=== PATIENT | female | born 1955 | race Caucasian/White ===

== ENCOUNTER → 2016-04-05 | Outpatient (CLI) | payer MEDICARE, MEDICAID ==
[~2016-04-05] MED LIST: ACET-654 PO; ALEV220T26 PO; ASPI81TA85 PO; CALCTAB68 PO; CENTTAB PO; CYMB60CA3 PO; ESTR0.5T PO; KEPP500T6 PO; PERCOCET PO; PRIL20CA PO; VITAD1000T PO; XANA0.25 PO; ZOCO20TA PO; decadron PO
--- NOTE | 2016-04-06 10:52 | DEXA ---
AP SPINE L1 - L4 0.704 -4.0 -2.7 LT FEMUR TOTAL 0.730 -2.2 -1.3 RT FEMUR TOTAL 0.777 -1.8 -0.9 TOTAL BODY TOTAL OTHER DUAL FEMUR FRAX* ASSESSMENT Risk factors: Premature menopause, thoracic compression fractures. 10 year probability of fracture Major osteoporotic fracture 23.8 % Hip fracture 6.2 % COMMENTS: There is osteoporosis of the spine and hips. FOLLOW-UP: Recommendation for the next bone density exam: 2 years. LARA
== END ==
LOC: M WHC 09:00
DX: M48.54XS Collapsed vertebra, not elsewhere classified, thoracic region, sequela of fracture (principal); M81.0 Age-related osteoporosis without current pathological fracture; Z78.0 Asymptomatic menopausal state

== ENCOUNTER → 2016-08-30 | Outpatient (CLI) | payer MEDICAID, MEDICARE ==
[~2016-08-30] MED LIST changes: +ISOVUE-370 76% 100ML VIAL (Q9967) As Ordered ONE; -PRIL20CA PO; +PRIL20CA9 PO
--- NOTE | 2016-08-30 10:09 | REP ---
CT STUDY OF THE CHEST WITH IV CONTRAST: HISTORY: Narrow endocrine carcinoma with metastasis. Comparison is made with most recent prior study of March 01, 2016. More remote prior CT study of December 01, [address] contrast dose: 75 mL of Isovue [address] FINDINGS: There are prominent venous collateral channels in the head and neck soft tissues. A right-sided venous injection is seen. 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 This is essentially unchanged. No supraclavicular adenopathy is seen. No mediastinal mass or adenopathy is observed. No hilar adenopathy is seen. Thoracic aorta enhances homogeneously. No filling defect is seen in the pulmonary arterial tree. Again noted are advanced emphysematous changes in the upper lobes of the lungs bilaterally. No new infiltrate is seen. There has been no change in the appearance of the 7 mm left lower lobe nodule. No new pulmonary mass lesion or new nodule is appreciated. There are some linear fibrotic changes in the right lower lobe posteromedially which are stable. No pleural or pericardial effusion is seen. Previously noted lytic lesion in the T8 vertebral body is again seen unchanged. There is slight wedging at this level. There is also a lytic lesion in the upper body of the sternum with ununited fracture appearance. This is possibly pathologic. It is unchanged from multiple prior studies including the most recent exam. IMPRESSION: Stable CT findings. Signed by Jonatan Napier MD 08/30/2016 12:58 P
--- NOTE | 2016-08-30 10:39 | REP ---
CT abdomen and pelvis with IV and oral contrast: Comparisons are 03/01/2016 and 12/03/2012. On 12/03/2012. The patient of mass in the tail of pancreas. This has been resected. The the hepatic parenchyma is homogeneous and unremarkable and unchanged. The gallbladder is unremarkable. The tail of the pancreas has been resected. There is no evidence of tumor recurrence. The appearance is unchanged from 03/01/2016. No adenopathy is identified. Spleen is normal size and unremarkable. The adrenals, kidneys and abdominal aorta are unremarkable. There is no retroperitoneal or mesenteric adenopathy. Bowel is unremarkable. Pelvis: There is no adenopathy or ascites. The pelvic bowel loops are unremarkable. The bladder is unremarkable. The vaginal cuff and adnexa are unremarkable in this patient with a hysterectomy. There are no lytic, blastic or destructive skeletal changes in the lumbar spine or pelvis. There is degenerative disc disease in the lumbar spine L5 S1. Impression: No evidence of tumor recurrence at the pancreatic tail. No adenopathy or ascites. No change from 03/01/2016. Degenerative disc disease in the lumbar spine L5 S1. No lytic, blastic or destructive skeletal lesions. Otherwise, negative CT study of the abdomen and pelvis. Signed by Lucas Tilley MD 08/30/2016 10:30 A
== END ==
LOC: M RAD 08:57
PROVIDERS: ATTEND Internal Medicine
DX: C7A.8 Other malignant neuroendocrine tumors (principal)
CPT/HCPCS: 71260; 74178; Q9967

== ENCOUNTER → 2016-12-08 | Outpatient (REF) | payer MEDICARE ==
[~2016-12-08] MED LIST changes: -ISOVUE-370 76% 100ML VIAL (Q9967) As Ordered ONE; +KEPP1TAB PO; -KEPP500T6 PO; +OXYC1TAB23 PO; +ZOFR4TAB3 PO
== END ==
LOC: M LAB REF 15:30
PROVIDERS: ATTEND Physician Assistant Medical
DX: N39.0 Urinary tract infection, site not specified (principal)

== ENCOUNTER → 2017-03-01 | Outpatient (CLI) | payer MEDICARE | LOC: M RAD 09:23 → M LAB 09:23 | PROVIDERS: ATTEND Internal Medicine | DX: C78.80 Secondary malignant neoplasm of unspecified digestive organ (principal); C7A.00 Malignant carcinoid tumor of unspecified site; C7A.8 Other malignant neuroendocrine tumors ==

== ENCOUNTER → 2017-03-03 | Outpatient (CLI) | payer MEDICARE ==
[2017-03-03 15:27] LABS: BLOOD UREA NITROGEN 18 MG/DL (7-18); CREATININE FOR GFR 0.99 MG/DL (0.55-1.02); GLOMERULAR FILTRATION RATE > 60.0 (>45)
== END ==
LOC: M LAB 03-01 11:37
DX: C34.91 Malignant neoplasm of unspecified part of right bronchus or lung (principal)

== ENCOUNTER → 2017-03-03 | Outpatient (CLI) | payer MEDICARE ==
[2017-03-03 15:30] LABS: ALBUMIN 4.1 GM/DL (3.2-5.2); ALBUMIN/GLOBULIN RATIO 1.05 (1.00-1.93); ALKALINE PHOSPHATASE 85 U/L (45-117); ALT/SGPT 20 U/L (12-78); ANION GAP 6 MEQ/L (8-16); AST/SGOT 15 U/L (7-37); BILIRUBIN,TOTAL 0.3 MG/DL (0.2-1.0); BLOOD UREA NITROGEN 17 MG/DL (7-18); CALCIUM LEVEL 9.4 MG/DL (8.8-10.2); CARBON DIOXIDE LEVEL 29 MEQ/L (21-32); CHLORIDE LEVEL 102 MEQ/L (98-107); CREATININE FOR GFR 0.97 MG/DL (0.55-1.02); GLOMERULAR FILTRATION RATE > 60.0 (>45); GLUCOSE, FASTING 90 MG/DL (80-110); POTASSIUM SERUM 4.5 MEQ/L (3.5-5.1); SODIUM LEVEL 137 MEQ/L (136-145)
== END ==
LOC: M LAB 14:45
PROVIDERS: ATTEND Internal Medicine
DX: C7A.00 Malignant carcinoid tumor of unspecified site (principal); C34.91 Malignant neoplasm of unspecified part of right bronchus or lung

== ENCOUNTER → 2017-03-04 | Outpatient (CLI) | payer MEDICARE ==
[~2017-03-04] MED LIST changes: +GASTROGRAFIN SOLUTION 30ML (Q9963) As Ordered ONE; +ISOVUE-370 76% 100ML VIAL (Q9967) As Ordered ONE
--- NOTE | 2017-03-04 15:28 | REP ---
CT of the chest with IV contrast: Comparisons are the most recent prior study dated 08/30/2016 as well as remote studies dating to 06/05/2008. The study is performed with intravenous contrast. The injection is into the right upper extremity. On the comparison study there was a right IJ central venous catheter. This has been removed. There are numerous venous collaterals in the soft tissues of the neck as previously. No contrast is identified in the proximal right subclavian vein. There is opacification of innominate vein and the collateral venous pathways with contrast entering the superior vena cava through the innominate vein. 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 Unchanged from prior study. There is a 7 ml left lower lobe lung nodule, unchanged from a prior study of 06/05/2008, therefore likely benign. There are no other lung nodules or masses. There is extensive bullous replacement lung parenchyma bilaterally, more predominant in the upper lobes, compatible with bullous emphysema. This is unchanged from multiple prior studies. There is no mediastinal or thoracic inlet adenopathy. There is no hilar adenopathy. There is no axillary adenopathy. There is a lytic lesion in the T8 vertebral body and there is a lytic lesion in the upper sternum. These are unchanged. 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 There is a stable granuloma in the left lower lobe. There is no adenopathy or mass. No infiltrate or effusion. There are lytic lesions of the T vertebral body and the superior sternum. These are unchanged. Sign taking Signed by Lucas Tilley MD 03/04/2017 03:19 P
--- NOTE | 2017-03-04 15:35 | REP ---
CT of the abdomen pelvis without and with IV contrast and with bowel contrast: After IV contrast. Biphasic scan is performed initially during the late arterial / portal venous phase of enhancement and later during the delayed equilibrium phase of enhancement. The patient had a mass in the tail of the pancreas are resected in the past and has clinical history of neuroendocrine carcinoma. Comparison 08/30/2016. The hepatic parenchyma is homogeneous unremarkable on all phases of the study. The gallbladder is unremarkable. The pancreatic tail is been resected. The remaining uncinate process, head and body of the pancreas are unremarkable and unchanged. There is no evidence of tumor recurrence. The spleen is unremarkable. The adrenals, kidneys and abdominal aorta are unremarkable. There is no mesenteric or retroperitoneal adenopathy. The bowel and mesentery are unremarkable. There is no ascites. Pelvis: There is no ascites or adenopathy. The bladder is unremarkable. There is a hysterectomy. Vaginal cuff and adnexa are unremarkable. The pelvic bowel loops are unremarkable. There are no lytic, blastic or destructive skeletal changes in the lumbar spine or pelvis. This is unchanged. There is degenerative disc disease at L5 S1. This is unchanged. Impression: No evidence of adenopathy, metastatic disease or ascites. No evidence of tumor recurrence at the pancreatic tail. No change from the comparison study. Signed by Lucas Tilley MD 03/04/2017 03:27 P
== END ==
LOC: M RAD 12:12
PROVIDERS: ATTEND Internal Medicine
DX: C7A.8 Other malignant neuroendocrine tumors (principal)
CPT/HCPCS: 71260; 74178; Q9963; Q9967

== ENCOUNTER → 2017-03-07 | Outpatient (CLI) | payer MEDICARE, MEDICAID ==
[~2017-03-07] MED LIST changes: -GASTROGRAFIN SOLUTION 30ML (Q9963) As Ordered ONE; +PROHANCE 279.3MG/ML 15ML VIAL (A9576) As Ordered ONE
--- NOTE | 2017-03-07 20:01 | REP ---
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 Comparison study September 08, 2015. Comparison study from November 23, 2013 is also reviewed. Technique: Axial and sagittal imaging planes are utilized for T1 and T2-weighted scans. Sequences include spin-echo, fast spin echo, FLAIR, and diffusion weighted sequences. Gadolinium enhancement dose is 13 ml of intravenous ProHance. MRI findings: There is a stable area of low density or encephalomalacia in the inferomedial cerebellar hemisphere on the left, unchanged from multiple prior studies. An area of encephalomalacia is again noted in the right posterior parietal lobe region, also unchanged. Pre gadolinium-enhanced T1-weighted scan again demonstrates a tiny area of T1 hyperintensity in the sub insular region on the right. There is hemosiderin staining here on FLAIR and turbo spin echo T2-weighted scans. This is unchanged and shows hyperintensity on post gadolinium enhanced images, although this may not be gadolinium enhancement, but rather T1 hyperintense signal. Diffusion weighted scans are unchanged and unremarkable. No new intracranial lesion is seen. No new area of gadolinium enhancement is noted. There is a small focus of calvarial T1 and T2 hyperintensity on the right posteriorly unchanged from multiple prior studies. Impression: No new intracranial lesion. Stable findings. Signed by Jonatan Napier MD 03/08/2017 03:55 P
== END ==
LOC: M RAD 17:59
PROVIDERS: ATTEND Nurse Practitioner
DX: C7A.8 Other malignant neuroendocrine tumors (principal)
CPT/HCPCS: 70553; A9576

== ENCOUNTER 2017-07-10 19:08 | Emergency (ER) | payer MEDICARE, MEDICAID | END 2017-07-10 22:04 | disposition home or self-care (01) | LOC: M ED 19:08 | DX: S22.41XA Multiple fractures of ribs, right side, initial encounter for closed fracture (principal); W17.89XA Other fall from one level to another, initial encounter; Y92.018 Other place in single-family (private) house as the place of occurrence of the external cause; Z79.899 Other long term (current) drug therapy; Z87.891 Personal history of nicotine dependence | CPT/HCPCS: 71101 ==

== ENCOUNTER 2017-07-12 21:38 | Inpatient (IN) | payer MEDICARE, MEDICAID ==
[2017-07-12 22:45] LABS: BASO # 0.1 10^3/uL (0.0-0.2); BASO % 0.6 % (0.0-1.0); EOS # 0.2 10^3/uL (0.0-0.50); EOS % 2.3 % (0.0-3.0); HEMATOCRIT 40.5 % (36.0-47.0); HEMOGLOBIN 13.7 g/dl (12.0-15.5); IMMATURE GRANULOCYTE % 0.4 % (0-3.0); LYMPH # 1.1 10^3/uL (1.5-4.5); LYMPH % 12.7 % (24.0-44.0); MEAN CORPUSCULAR HEMOGLOBIN 30.9 pg (27.0-33.0); MEAN CORPUSCULAR HGB CONC 33.8 g/dl (32.0-36.5); MEAN CORPUSCULAR VOLUME 91.4 fl (80.0-96.0); MONO % 11.7 % (0.0-5.0); NEUTROPHILS % 72.3 % (36.0-66.0); PLATELET COUNT, AUTOMATED 264 10^3/uL (150-450); RED BLOOD COUNT 4.43 10^6/uL (4.00-5.40); RED CELL DISTRIBUTION WIDTH 13.9 % (11.5-14.5); WHITE BLOOD COUNT 8.3 10^3/uL (4.0-10.0)
[2017-07-12 22:49] LABS: INR 0.88
[2017-07-12 22:50] LABS: PARTIAL THROMBOPLASTIN TIME 39.5 SECONDS (26.8-37.9)
[2017-07-12 23:00] LABS: BLOOD UREA NITROGEN 19 MG/DL (7-18); CALCIUM LEVEL 9.2 MG/DL (8.8-10.2); CHLORIDE LEVEL 106 MEQ/L (98-107); CPK CREATINE PHOSPHOKINASE 120 U/L (26-192); CREATININE FOR GFR 1.27 MG/DL (0.55-1.30); GLUCOSE, FASTING 104 MG/DL (70-100); POTASSIUM SERUM 4.4 MEQ/L (3.5-5.1); SODIUM LEVEL 140 MEQ/L (136-145)
[2017-07-12 23:43] LABS: TROPONIN I < 0.02 NG/ML (< 0.10)
[2017-07-12] MEDS: MORPHINE 2 MG/ML 1ML SYRINGE (J2270) IV (23:49)
[2017-07-12] MEDS: NS 500 ML IV (23:53)
[2017-07-13] MEDS ORDERED: ISOVUE-370 76% 100ML VIAL (Q9967) As Ordered (00:15)
[2017-07-13 00:17] LABS: ANION GAP 5 MEQ/L (8-16); CARBON DIOXIDE LEVEL 29 MEQ/L (21-32); CK-MB VALUE MASS 1.4 NG/ML (<3.6); MB/CK RELATIVE INDEX 1.16 (< OR =4)
[2017-07-13] MEDS: MORPHINE 2 MG/ML 1ML SYRINGE (J2270) IV (02:19)
[2017-07-13] MEDS ORDERED: METAL LOCK LOOP XX (03:06)
[2017-07-13] MEDS: BUPIVACAINE LIPOSOME/PF 1.3% 20 ML VIAL (13.3MG/ML)(EXPAREL) INFIL ×2 (03:15→12:21)
[2017-07-13] MEDS ORDERED: ONDANSETRON 4MG/2ML VIAL (J2405) IV (03:30)
[2017-07-13] MEDS ORDERED: SLF 3 ML SYR IV (05:15)
[2017-07-13] MEDS: PERCOCET 5MG/325MG TAB PO ×4 (05:20→20:10)
[2017-07-13] MEDS: SLF 3 ML SYR IV ×3 (05:21→20:08)
[2017-07-13] MEDS ORDERED: ALBUTEROL SULFATE 2.5 MG/0.5 ML INH NEB SOLN NEB (06:15)
[2017-07-13] MEDS: MORPHINE 4 MG/ML 1ML VIAL/SYRINGE (J2270) IV (08:24)
[2017-07-13] MEDS: levETIRAcetam 250MG TABLET (KEPPRA) PO ×2 (08:24→20:07)
[2017-07-13] MEDS: ENOXAPARIN 40 MG/0.4 ML SYRINGE (J1650) SC (08:24)
[2017-07-13] MEDS: DULoxetine 30 MG CAP (CYMBALTA) PO (08:25)
[2017-07-13] MEDS: SENOKOT S TAB PO ×2 (08:25→20:07)
[2017-07-13] MEDS ORDERED: LIDOCAINE 1% MDV 20ML VIAL As Ordered (11:49)
[2017-07-13] MEDS: LIDOCAINE 1% MDV 20ML VIAL SC (12:34)
[2017-07-13] MEDS: DOCUSATE SODIUM 100 MG CAP PO ×2 (13:05→20:07)
[2017-07-13] MEDS: MOM 30ML SUSPENSION UDC PO (13:05)
[2017-07-13 18:41] LABS: ABG BASE EXCESS 2.4 (-2.0-2.0); ABG HCO3 27.5 MEQ/L (22.0-26.0); ABG O2 SATURATION 92.4 % (95.0-99.0); ABG PARTIAL PRESSURE CO2 44.4 mmHg (35.0-45.0); ABG PARTIAL PRESSURE O2 68.4 mmHg (75.0-100.0); ABG STANDARD HCO3 26.5 MEQ/L (22.0-26.0); ABG TOTAL CO2 28.9 MEQ/L (23.0-31.0)
[2017-07-13] MEDS: QUEtiapine FUMARATE 50 MG TAB PO (20:07)
[2017-07-14 05:50] LABS: HEMATOCRIT 36.9 % (36.0-47.0); HEMOGLOBIN 12.3 g/dl (12.0-15.5); MEAN CORPUSCULAR HEMOGLOBIN 30.4 pg (27.0-33.0); MEAN CORPUSCULAR HGB CONC 33.3 g/dl (32.0-36.5); MEAN CORPUSCULAR VOLUME 91.1 fl (80.0-96.0); PLATELET COUNT, AUTOMATED 203 10^3/uL (150-450); RED BLOOD COUNT 4.05 10^6/uL (4.00-5.40); RED CELL DISTRIBUTION WIDTH 13.8 % (11.5-14.5); WHITE BLOOD COUNT 4.5 10^3/uL (4.0-10.0)
[2017-07-14] MEDS: SLF 3 ML SYR IV ×3 (06:00→21:07)
[2017-07-14 06:18] LABS: ANION GAP 5 MEQ/L (8-16); BLOOD UREA NITROGEN 11 MG/DL (7-18); CALCIUM LEVEL 8.8 MG/DL (8.8-10.2); CARBON DIOXIDE LEVEL 26 MEQ/L (21-32); CHLORIDE LEVEL 107 MEQ/L (98-107); CREATININE FOR GFR 0.75 MG/DL (0.55-1.30); GLOMERULAR FILTRATION RATE > 60.0 (>45); GLUCOSE, FASTING 84 MG/DL (70-100); POTASSIUM SERUM 3.9 MEQ/L (3.5-5.1); SODIUM LEVEL 138 MEQ/L (136-145)
[2017-07-14] MEDS: MOM 30ML SUSPENSION UDC PO (09:25)
[2017-07-14] MEDS: SENOKOT S TAB PO ×2 (09:26→21:07)
[2017-07-14] MEDS: DOCUSATE SODIUM 100 MG CAP PO ×2 (09:26→21:06)
[2017-07-14] MEDS: DULoxetine 30 MG CAP (CYMBALTA) PO (09:26)
[2017-07-14] MEDS: levETIRAcetam 250MG TABLET (KEPPRA) PO ×2 (09:26→21:07)
[2017-07-14] MEDS: PERCOCET 5MG/325MG TAB PO ×2 (09:26→18:47)
[2017-07-14] MEDS: ENOXAPARIN 40 MG/0.4 ML SYRINGE (J1650) SC (09:27)
[2017-07-14] MEDS: MORPHINE 4 MG/ML 1ML VIAL/SYRINGE (J2270) IV (12:28)
[2017-07-14] MEDS: KETOROLAC 30 MG/ML VIAL (J1885) IV ×2 (15:27→21:07)
[2017-07-14] MEDS: QUEtiapine FUMARATE 50 MG TAB PO (21:06)
[2017-07-15] MEDS: KETOROLAC 30 MG/ML VIAL (J1885) IV ×2 (03:50→08:06)
[2017-07-15] MEDS: SLF 3 ML SYR IV ×3 (03:50→22:00)
[2017-07-15 05:51] LABS: HEMATOCRIT 33.6 % (36.0-47.0); HEMOGLOBIN 11.2 g/dl (12.0-15.5); MEAN CORPUSCULAR HEMOGLOBIN 30.5 pg (27.0-33.0); MEAN CORPUSCULAR HGB CONC 33.3 g/dl (32.0-36.5); MEAN CORPUSCULAR VOLUME 91.6 fl (80.0-96.0); PLATELET COUNT, AUTOMATED 198 10^3/uL (150-450); RED BLOOD COUNT 3.67 10^6/uL (4.00-5.40); RED CELL DISTRIBUTION WIDTH 13.8 % (11.5-14.5); WHITE BLOOD COUNT 4.3 10^3/uL (4.0-10.0)
[2017-07-15 06:04] LABS: ANION GAP 6 MEQ/L (8-16); BLOOD UREA NITROGEN 23 MG/DL (7-18); CALCIUM LEVEL 8.7 MG/DL (8.8-10.2); CARBON DIOXIDE LEVEL 29 MEQ/L (21-32); CHLORIDE LEVEL 105 MEQ/L (98-107); CREATININE FOR GFR 1.22 MG/DL (0.55-1.30); GLOMERULAR FILTRATION RATE 47.4 (>45); GLUCOSE, FASTING 88 MG/DL (70-100); POTASSIUM SERUM 4.9 MEQ/L (3.5-5.1); SODIUM LEVEL 140 MEQ/L (136-145)
[2017-07-15] MEDS: PERCOCET 5MG/325MG TAB PO ×5 (07:32→22:42)
[2017-07-15] MEDS: levETIRAcetam 250MG TABLET (KEPPRA) PO ×2 (08:06→20:30)
[2017-07-15] MEDS: DULoxetine 30 MG CAP (CYMBALTA) PO (08:06)
[2017-07-15] MEDS: ENOXAPARIN 40 MG/0.4 ML SYRINGE (J1650) SC (08:07)
[2017-07-15] MEDS: SENOKOT S TAB PO ×2 (08:07→20:30)
[2017-07-15] MEDS: MOM 30ML SUSPENSION UDC PO (08:07)
[2017-07-15] MEDS: DOCUSATE SODIUM 100 MG CAP PO ×2 (08:07→20:30)
[2017-07-15] MEDS: MORPHINE 4 MG/ML 1ML VIAL/SYRINGE (J2270) IV ×3 (11:58→20:32)
[2017-07-15] MEDS: QUEtiapine FUMARATE 50 MG TAB PO (20:30)
[2017-07-16] MEDS: MORPHINE 4 MG/ML 1ML VIAL/SYRINGE (J2270) IV ×5 (00:25→18:02)
[2017-07-16 05:12] LABS: HEMOGLOBIN 11.1 g/dl (12.0-15.5); MEAN CORPUSCULAR HGB CONC 33.6 g/dl (32.0-36.5); MEAN CORPUSCULAR VOLUME 92.2 fl (80.0-96.0); PLATELET COUNT, AUTOMATED 200 10^3/uL (150-450); RED BLOOD COUNT 3.58 10^6/uL (4.00-5.40); RED CELL DISTRIBUTION WIDTH 13.9 % (11.5-14.5); WHITE BLOOD COUNT 4.2 10^3/uL (4.0-10.0)
[2017-07-16] MEDS: PERCOCET 5MG/325MG TAB PO ×3 (05:15→13:52)
[2017-07-16] MEDS: SLF 3 ML SYR IV ×3 (05:18→21:24)
[2017-07-16 05:31] LABS: ANION GAP 6 MEQ/L (8-16); BLOOD UREA NITROGEN 26 MG/DL (7-18); CALCIUM LEVEL 8.9 MG/DL (8.8-10.2); CARBON DIOXIDE LEVEL 27 MEQ/L (21-32); CHLORIDE LEVEL 107 MEQ/L (98-107); CREATININE FOR GFR 0.93 MG/DL (0.55-1.30); GLOMERULAR FILTRATION RATE > 60.0 (>45); GLUCOSE, FASTING 86 MG/DL (70-100); POTASSIUM SERUM 4.6 MEQ/L (3.5-5.1); SODIUM LEVEL 140 MEQ/L (136-145)
[2017-07-16] MEDS: DOCUSATE SODIUM 100 MG CAP PO ×2 (09:36→21:24)
[2017-07-16] MEDS: MOM 30ML SUSPENSION UDC PO (09:36)
[2017-07-16] MEDS: SENOKOT S TAB PO ×2 (09:36→21:24)
[2017-07-16] MEDS: DULoxetine 30 MG CAP (CYMBALTA) PO (09:36)
[2017-07-16] MEDS: levETIRAcetam 250MG TABLET (KEPPRA) PO ×2 (09:37→21:24)
[2017-07-16] MEDS: ENOXAPARIN 40 MG/0.4 ML SYRINGE (J1650) SC (09:40)
[2017-07-16] MEDS: QUEtiapine FUMARATE 50 MG TAB PO (21:24)
[2017-07-17] MEDS: PERCOCET 5MG/325MG TAB PO ×3 (02:01→14:10)
[2017-07-17] MEDS: SLF 3 ML SYR IV ×3 (06:00→23:23)
[2017-07-17 06:15] LABS: HEMATOCRIT 34.4 % (36.0-47.0); HEMOGLOBIN 11.3 g/dl (12.0-15.5); MEAN CORPUSCULAR HEMOGLOBIN 30.4 pg (27.0-33.0); MEAN CORPUSCULAR HGB CONC 32.8 g/dl (32.0-36.5); MEAN CORPUSCULAR VOLUME 92.5 fl (80.0-96.0); PLATELET COUNT, AUTOMATED 203 10^3/uL (150-450); RED BLOOD COUNT 3.72 10^6/uL (4.00-5.40); WHITE BLOOD COUNT 4.1 10^3/uL (4.0-10.0)
[2017-07-17 06:39] LABS: ANION GAP 6 MEQ/L (8-16); BLOOD UREA NITROGEN 17 MG/DL (7-18); CALCIUM LEVEL 8.6 MG/DL (8.8-10.2); CARBON DIOXIDE LEVEL 27 MEQ/L (21-32); CHLORIDE LEVEL 109 MEQ/L (98-107); CREATININE FOR GFR 0.84 MG/DL (0.55-1.30); GLOMERULAR FILTRATION RATE > 60.0 (>45); GLUCOSE, FASTING 81 MG/DL (70-100); POTASSIUM SERUM 4.3 MEQ/L (3.5-5.1); SODIUM LEVEL 142 MEQ/L (136-145)
[2017-07-17] MEDS: DULoxetine 30 MG CAP (CYMBALTA) PO (09:00)
[2017-07-17] MEDS: MOM 30ML SUSPENSION UDC PO ×2 (09:00→09:01)
[2017-07-17] MEDS: ENOXAPARIN 40 MG/0.4 ML SYRINGE (J1650) SC (09:00)
[2017-07-17] MEDS: DOCUSATE SODIUM 100 MG CAP PO ×2 (09:00→20:18)
[2017-07-17] MEDS: SENOKOT S TAB PO ×2 (09:00→20:18)
[2017-07-17] MEDS: levETIRAcetam 250MG TABLET (KEPPRA) PO ×2 (09:00→20:18)
[2017-07-17] MEDS: QUEtiapine FUMARATE 50 MG TAB PO (20:18)
[2017-07-18] MEDS: SLF 3 ML SYR IV ×3 (05:31→21:31)
[2017-07-18 05:59] LABS: HEMATOCRIT 33.8 % (36.0-47.0); HEMOGLOBIN 11.2 g/dl (12.0-15.5); MEAN CORPUSCULAR HEMOGLOBIN 30.5 pg (27.0-33.0); MEAN CORPUSCULAR HGB CONC 33.1 g/dl (32.0-36.5); MEAN CORPUSCULAR VOLUME 92.1 fl (80.0-96.0); PLATELET COUNT, AUTOMATED 215 10^3/uL (150-450); RED BLOOD COUNT 3.67 10^6/uL (4.00-5.40); RED CELL DISTRIBUTION WIDTH 13.8 % (11.5-14.5); WHITE BLOOD COUNT 4.6 10^3/uL (4.0-10.0)
[2017-07-18] MEDS: PERCOCET 5MG/325MG TAB PO ×3 (06:12→15:30)
[2017-07-18 06:37] LABS: ANION GAP 6 MEQ/L (8-16); BLOOD UREA NITROGEN 17 MG/DL (7-18); CARBON DIOXIDE LEVEL 27 MEQ/L (21-32); CHLORIDE LEVEL 108 MEQ/L (98-107); CREATININE FOR GFR 0.81 MG/DL (0.55-1.30); GLOMERULAR FILTRATION RATE > 60.0 (>45); GLUCOSE, FASTING 90 MG/DL (70-100); POTASSIUM SERUM 4.2 MEQ/L (3.5-5.1); SODIUM LEVEL 141 MEQ/L (136-145)
[2017-07-18] MEDS: DOCUSATE SODIUM 100 MG CAP PO ×2 (09:00→21:30)
[2017-07-18] MEDS: DULoxetine 30 MG CAP (CYMBALTA) PO (09:00)
[2017-07-18] MEDS: ENOXAPARIN 40 MG/0.4 ML SYRINGE (J1650) SC (09:00)
[2017-07-18] MEDS: SENOKOT S TAB PO ×2 (09:00→21:30)
[2017-07-18] MEDS: MOM 30ML SUSPENSION UDC PO (09:00)
[2017-07-18] MEDS: levETIRAcetam 250MG TABLET (KEPPRA) PO ×2 (09:02→21:30)
[2017-07-18] MEDS: QUEtiapine FUMARATE 50 MG TAB PO (21:30)
[2017-07-19] MEDS: PERCOCET 5MG/325MG TAB PO ×3 (00:42→20:12)
[2017-07-19] MEDS: SLF 3 ML SYR IV ×3 (04:39→22:02)
[2017-07-19 06:48] LABS: HEMATOCRIT 33.6 % (36.0-47.0); HEMOGLOBIN 11.4 g/dl (12.0-15.5); MEAN CORPUSCULAR HEMOGLOBIN 30.8 pg (27.0-33.0); MEAN CORPUSCULAR HGB CONC 33.9 g/dl (32.0-36.5); MEAN CORPUSCULAR VOLUME 90.8 fl (80.0-96.0); PLATELET COUNT, AUTOMATED 228 10^3/uL (150-450); RED CELL DISTRIBUTION WIDTH 13.8 % (11.5-14.5); WHITE BLOOD COUNT 4.2 10^3/uL (4.0-10.0)
[2017-07-19 07:07] LABS: ANION GAP 3 MEQ/L (8-16); BLOOD UREA NITROGEN 14 MG/DL (7-18); CALCIUM LEVEL 9.2 MG/DL (8.8-10.2); CARBON DIOXIDE LEVEL 27 MEQ/L (21-32); CHLORIDE LEVEL 110 MEQ/L (98-107); CREATININE FOR GFR 0.71 MG/DL (0.55-1.30); GLOMERULAR FILTRATION RATE > 60.0 (>45); GLUCOSE, FASTING 84 MG/DL (70-100); POTASSIUM SERUM 3.8 MEQ/L (3.5-5.1); SODIUM LEVEL 140 MEQ/L (136-145)
[2017-07-19] MEDS: DOCUSATE SODIUM 100 MG CAP PO ×2 (09:00→20:11)
[2017-07-19] MEDS: MOM 30ML SUSPENSION UDC PO ×2 (09:00→10:11)
[2017-07-19] MEDS: SENOKOT S TAB PO ×2 (09:00→20:11)
[2017-07-19] MEDS: levETIRAcetam 250MG TABLET (KEPPRA) PO ×2 (09:56→20:11)
[2017-07-19] MEDS: DULoxetine 30 MG CAP (CYMBALTA) PO (09:58)
[2017-07-19] MEDS: ENOXAPARIN 40 MG/0.4 ML SYRINGE (J1650) SC (10:10)
[2017-07-19] MEDS: QUEtiapine FUMARATE 50 MG TAB PO (20:11)
[2017-07-20] MEDS: SLF 3 ML SYR IV ×3 (03:07→22:00)
[2017-07-20 07:33] LABS: HEMATOCRIT 34.5 % (36.0-47.0); HEMOGLOBIN 11.7 g/dl (12.0-15.5); MEAN CORPUSCULAR HEMOGLOBIN 30.7 pg (27.0-33.0); MEAN CORPUSCULAR HGB CONC 33.9 g/dl (32.0-36.5); MEAN CORPUSCULAR VOLUME 90.6 fl (80.0-96.0); PLATELET COUNT, AUTOMATED 233 10^3/uL (150-450); RED BLOOD COUNT 3.81 10^6/uL (4.00-5.40); RED CELL DISTRIBUTION WIDTH 13.7 % (11.5-14.5); WHITE BLOOD COUNT 5.4 10^3/uL (4.0-10.0)
[2017-07-20 07:58] LABS: ANION GAP 6 MEQ/L (8-16); BLOOD UREA NITROGEN 11 MG/DL (7-18); CALCIUM LEVEL 9.1 MG/DL (8.8-10.2); CARBON DIOXIDE LEVEL 26 MEQ/L (21-32); CHLORIDE LEVEL 109 MEQ/L (98-107); CREATININE FOR GFR 0.77 MG/DL (0.55-1.30); GLOMERULAR FILTRATION RATE > 60.0 (>45); GLUCOSE, FASTING 77 MG/DL (70-100); POTASSIUM SERUM 3.6 MEQ/L (3.5-5.1); SODIUM LEVEL 141 MEQ/L (136-145)
[2017-07-20] MEDS: DOCUSATE SODIUM 100 MG CAP PO ×2 (10:11→22:32)
[2017-07-20] MEDS: DULoxetine 30 MG CAP (CYMBALTA) PO (10:12)
[2017-07-20] MEDS: ENOXAPARIN 40 MG/0.4 ML SYRINGE (J1650) SC (10:12)
[2017-07-20] MEDS: SENOKOT S TAB PO ×2 (10:12→21:00)
[2017-07-20] MEDS: levETIRAcetam 250MG TABLET (KEPPRA) PO ×2 (10:12→22:30)
[2017-07-20] MEDS: PERCOCET 5MG/325MG TAB PO ×3 (10:12→22:31)
[2017-07-20] MEDS: QUEtiapine FUMARATE 50 MG TAB PO (22:31)
[2017-07-21] MEDS: SLF 3 ML SYR IV ×2 (06:00→09:13)
[2017-07-21] MEDS: MOM 30ML SUSPENSION UDC PO (09:00)
[2017-07-21] MEDS: ENOXAPARIN 40 MG/0.4 ML SYRINGE (J1650) SC (09:10)
[2017-07-21] MEDS: DOCUSATE SODIUM 100 MG CAP PO (09:10)
[2017-07-21] MEDS: DULoxetine 30 MG CAP (CYMBALTA) PO (09:10)
[2017-07-21] MEDS: levETIRAcetam 250MG TABLET (KEPPRA) PO (09:10)
[2017-07-21] MEDS: SENOKOT S TAB PO (09:11)
[2017-07-21] MEDS: PERCOCET 5MG/325MG TAB PO (09:12)
[2017-07-21 11:46] LABS: APPEARANCE, URINE HAZY (CLEAR); BACTERIA, URINE AUTO NEGATIVE (NEGATIVE); BILIRUBIN, URINE AUTO NEGATIVE (NEGATIVE); BLOOD, URINE BLOOD 2+ (NEGATIVE); COLOR, URINE YELLOW (YELLOW); GLUCOSE, URINE (UA) AUTO NEGATIVE (NEGATIVE); KETONE, URINE AUTO NEGATIVE (NEGATIVE); LEUKOCYTE ESTERASE, URINE AUTO 3+ (NEGATIVE); MUCUS, URINE SMALL (NEGATIVE); NITRITE, URINE AUTO NEGATIVE (NEGATIVE); PROTEIN, URINE AUTO NEGATIVE (NEGATIVE); RBC, URINE AUTO 32 /HPF (0-3); RENAL EPITHELIAL CELLS 1 /HPF; SPECIFIC GRAVITY URINE AUTO 1.008 (1.002-1.035); SQUAMOUS EPITHELIAL CELL UR AU 0 /HPF (0-6); TRANSITIONAL EPITHELIAL AUTO <1 /HPF; UROBILINOGEN, URINE AUTO 0.2 mg/dL (0.0-2.0); WBC, URINE AUTO TNTC /HPF (0-3)
[2017-07-21] MEDS: CEFDINIR 300 MG CAP (OMNICEF) PO (13:10)
== END 2017-07-21 14:16 | disposition home health service (06) | DRG 200 ==
LOC: M PCU 07-15 05:45 → M MSPAV 07-16 16:34 → M ED INP 07-13 03:28 → M PCU 07-13 04:46 → M ED 21:38
PROC: 3E0T3BZ Introduction of Anesthetic Agent into Peripheral Nerves and Plexi, Percutaneous Approach (ICD-10-PCS; principal; 2017-07-13)
DX: S27.2XXA Traumatic hemopneumothorax, initial encounter (principal); S22.41XA Multiple fractures of ribs, right side, initial encounter for closed fracture; C79.31 Secondary malignant neoplasm of brain; W17.89XA Other fall from one level to another, initial encounter; Y92.018 Other place in single-family (private) house as the place of occurrence of the external cause; Z79.899 Other long term (current) drug therapy; J43.9 Emphysema, unspecified; F32.9 Major depressive disorder, single episode, unspecified; F41.9 Anxiety disorder, unspecified; R29.6 Repeated falls; Z87.891 Personal history of nicotine dependence; Z85.118 Personal history of other malignant neoplasm of bronchus and lung

== ENCOUNTER → 2017-09-07 | Outpatient (CLI) | payer MEDICARE ==
[~2017-09-07] MED LIST changes: -ACET-654 PO; -ALEV220T26 PO; -ASPI81TA85 PO; -CALCTAB68 PO; -CENTTAB PO; -CYMB60CA3 PO; -ESTR0.5T PO; +GASTROGRAFIN SOLUTION 30ML (Q9963) As Ordered; +ISOVUE-370 76% 100ML VIAL (Q9967) As Ordered; -ISOVUE-370 76% 100ML VIAL (Q9967) As Ordered ONE; -KEPP1TAB PO; -OXYC1TAB23 PO; -PERCOCET PO; -PRIL20CA9 PO; -PROHANCE 279.3MG/ML 15ML VIAL (A9576) As Ordered ONE; -VITAD1000T PO; -XANA0.25 PO; -ZOCO20TA PO; -ZOFR4TAB3 PO; -decadron PO
== END ==
LOC: M RAD 09:31
DX: C34.90 Malignant neoplasm of unspecified part of unspecified bronchus or lung (principal)
CPT/HCPCS: Q9963

== ENCOUNTER 2017-10-03 14:30 | Emergency (ER) | payer MEDICARE, MEDICAID | END 2017-10-03 16:15 | disposition home or self-care (01) | LOC: M ED 14:30 | DX: S30.0XXA Contusion of lower back and pelvis, initial encounter (principal); S70.02XA Contusion of left hip, initial encounter; W01.0XXA Fall on same level from slipping, tripping and stumbling without subsequent striking against object, initial encounter; Y92.094 Garage of other non-institutional residence as the place of occurrence of the external cause; J44.9 Chronic obstructive pulmonary disease, unspecified; K21.9 Gastro-esophageal reflux disease without esophagitis; F41.9 Anxiety disorder, unspecified; F32.9 Major depressive disorder, single episode, unspecified; Z79.899 Other long term (current) drug therapy | CPT/HCPCS: 72110 ==

== ENCOUNTER 2017-10-10 20:08 | Emergency (ER) | payer MEDICARE, MEDICAID ==
[2017-10-11] MEDS: MORPHINE 4 MG/ML 1ML VIAL/SYRINGE (J2270) IV ×2 (00:41→01:02)
[2017-10-11] MEDS: ONDANSETRON 4MG/2ML VIAL (J2405) IV (00:41)
[2017-10-11] MEDS ORDERED: MORPHINE 4 MG/ML 1ML VIAL/SYRINGE (J2270) As Ordered (01:09)
== END 2017-10-11 02:30 | disposition home or self-care (01) ==
LOC: M ED 20:08
DX: M25.551 Pain in right hip (principal); M54.5 Low back pain; W01.198A Fall on same level from slipping, tripping and stumbling with subsequent striking against other object, initial encounter; Y92.091 Bathroom in other non-institutional residence as the place of occurrence of the external cause; Z85.118 Personal history of other malignant neoplasm of bronchus and lung; Z85.841 Personal history of malignant neoplasm of brain; Z87.891 Personal history of nicotine dependence; Z79.899 Other long term (current) drug therapy
CPT/HCPCS: J2270

== ENCOUNTER 2017-12-27 06:51 | Day surgery (SDC) | payer MEDICARE ==
[2017-12-27] MEDS: NS 1,000 ML IV (07:08)
[2017-12-27] MEDS ORDERED: LIDOCAINE 2% INJ 100 MG/5 ML SDV (FOR ANES.) As Ordered (08:05)
[2017-12-27] MEDS ORDERED: PROPOFOL 500 MG/50 ML VIAL As Ordered (08:05)
== END 2017-12-27 08:53 | disposition home or self-care (01) ==
LOC: M OPP 06:51
DX: Z12.11 Encounter for screening for malignant neoplasm of colon (principal); D12.3 Benign neoplasm of transverse colon; K64.0 First degree hemorrhoids; K57.30 Diverticulosis of large intestine without perforation or abscess without bleeding; M19.90 Unspecified osteoarthritis, unspecified site; K62.5 Hemorrhage of anus and rectum; F41.9 Anxiety disorder, unspecified; F32.9 Major depressive disorder, single episode, unspecified; Z78.0 Asymptomatic menopausal state; J44.9 Chronic obstructive pulmonary disease, unspecified; Z85.118 Personal history of other malignant neoplasm of bronchus and lung; Z92.21 Personal history of antineoplastic chemotherapy; Z92.3 Personal history of irradiation; R06.02 Shortness of breath; Z87.891 Personal history of nicotine dependence; Z79.899 Other long term (current) drug therapy; C79.31 Secondary malignant neoplasm of brain
CPT/HCPCS: 45385

== ENCOUNTER → 2018-02-08 | Outpatient (CLI) | payer MEDICARE | LOC: M RAD 13:49 | DX: Z12.31 Encounter for screening mammogram for malignant neoplasm of breast (principal) | CPT/HCPCS: 77067 ==

== ENCOUNTER → 2018-02-27 | Outpatient (CLI) | payer MEDICARE, MEDICAID ==
[~2018-02-27] MED LIST changes: -GASTROGRAFIN SOLUTION 30ML (Q9963) As Ordered; -ISOVUE-370 76% 100ML VIAL (Q9967) As Ordered; +PROHANCE 279.3MG/ML 15ML VIAL (A9576) As Ordered
== END ==
LOC: M RAD 12:37
DX: C34.90 Malignant neoplasm of unspecified part of unspecified bronchus or lung (principal); C7A.8 Other malignant neuroendocrine tumors
CPT/HCPCS: A9576

== ENCOUNTER → 2018-03-06 | Outpatient (CLI) | payer MEDICARE ==
[~2018-03-06] MED LIST changes: +GASTROGRAFIN SOLUTION 30ML (Q9963) As Ordered; +ISOVUE-370 76% 100ML VIAL (Q9967) As Ordered; -PROHANCE 279.3MG/ML 15ML VIAL (A9576) As Ordered
== END ==
LOC: M RAD 12:43
DX: C34.90 Malignant neoplasm of unspecified part of unspecified bronchus or lung (principal); C7A.8 Other malignant neuroendocrine tumors
CPT/HCPCS: Q9963

== ENCOUNTER → 2018-04-10 | Outpatient (REF) | payer MEDICARE, MEDICAID ==
[~2018-04-10] MED LIST changes: +ACET-654 PO; +ALEV220T26 PO; +ASPI81TA85 PO; +CALC500T49 PO; +CALCTAB68 PO; +CEFD1CAP8 PO; +CENTTAB PO; +CYMB60CA3 PO; +DULO1CAP3 PO; +ESTR0.5T PO; -GASTROGRAFIN SOLUTION 30ML (Q9963) As Ordered; -ISOVUE-370 76% 100ML VIAL (Q9967) As Ordered; +KEPP1TAB PO; +OMEP20CA3 PO; +OXYC1TAB23 PO; +PERC10TA26 PO; +PERCOCET PO; +PRIL20CA9 PO; +QUET5TAB; +SERO50TA PO; +VITAD1000T PO; +VITMTA PO; +XANA0.25 PO; +ZOCO20TA PO; +ZOFR4TAB14 PO; +decadron PO
== END ==
LOC: M LAB REF 16:57
PROVIDERS: ATTEND Nurse Practitioner Adult Health
DX: C34.90 Malignant neoplasm of unspecified part of unspecified bronchus or lung (principal); C79.31 Secondary malignant neoplasm of brain

== ENCOUNTER → 2018-08-31 | Outpatient (CLI) | payer MEDICAID, MEDICARE ==
[~2018-08-31] MED LIST changes: +GASTROGRAFIN SOLUTION 30ML (Q9963) As Ordered ONE; +ISOVUE-370 76% 100ML VIAL (Q9967) As Ordered ONE
--- NOTE | 2018-08-31 17:17 | REP ---
CT CHEST WITH IV CONTRAST: TECHNIQUE: Axial contrast enhanced images from the thoracic inlet to the upper abdomen using 100 mL Isovue 370 intravenous contrast material with multiplanar reformations. COMPARISON: 03/06/2018 as well as other prior exams. Once again, severe emphysematous changes are seen in the upper lobes. Scattered fibrotic changes are again noted. The subcentimeter nodular opacity in the left lower lobe is stable. No new nodules are seen. There is no evidence of mediastinal, hilar or chest wall lymphadenopathy. The heart is normal in size. There is no pleural or pericardial effusion. Old pathologic fracture of the T8 vertebral body is stable. IMPRESSION: Stable CT of the chest as discussed in detail above. Electronically Signed by Lucas Casillas MD 09/04/2018 04:59 P
--- NOTE | 2018-08-31 17:25 | REP ---
CT ABDOMEN AND PELVIS WITH ORAL AND IV CONTRAST: TECHNIQUE: Axial contrast enhanced images from the lung bases to the pubic symphysis using 100 mL Isovue 370 intravenous contrast material with multiplanar reformations. COMPARISON: 03/06/2018 The liver, spleen, adrenal, pancreas, and kidneys are unremarkable. No mass is seen. There is no adenopathy in the abdomen or pelvis. There is no abdominal aortic aneurysm. There is no free air or free fluid. There is no bowel wall thickening. No pelvic mass is seen. The patient has had a prior hysterectomy. The urinary bladder is slightly distended and not optimally evaluated. There is continued advanced healing of sacral insufficiency fractures. IMPRESSION: No evidence of mass or adenopathy. Continued advanced healing of sacral insufficiency fracture. Electronically Signed by Lucas Casillas MD 09/04/2018 04:59 P
== END ==
LOC: M RAD 11:38
PROVIDERS: ATTEND Internal Medicine
DX: C34.90 Malignant neoplasm of unspecified part of unspecified bronchus or lung (principal)
CPT/HCPCS: 71260; 74177; Q9963; Q9967

== ENCOUNTER → 2018-10-04 | Outpatient (CLI) | payer MEDICARE ==
[~2018-10-04] MED LIST changes: -DULO1CAP3 PO; +DULO1CAP6 PO; -GASTROGRAFIN SOLUTION 30ML (Q9963) As Ordered ONE; -ISOVUE-370 76% 100ML VIAL (Q9967) As Ordered ONE; -OMEP20CA3 PO; +OMEP20CA4 PO
--- NOTE | 2018-10-04 18:23 | REP ---
Left rib series: Six views including PA chest. History: Contusion. Comparison chest x-ray: July 21, 2017. Findings: PA chest x-ray shows hyperinflation and bilateral upper lobe hyperemia consistent with COPD. There is no evidence of pneumothorax or hydrothorax. Mild linear fibrosis changes are seen at the bases bilaterally. Heart size is normal. Mediastinum is not widened. Multiple views of the left rib cage show no visible rib fracture or bony destructive lesion. Impression: Evidence of COPD. No rib fracture or bony destructive lesion seen. Electronically Signed by Jonatan Napier MD 10/05/2018 07:59 A
== END ==
LOC: M WUC 15:40
PROVIDERS: ATTEND Physician Assistant
DX: S20.229A Contusion of unspecified back wall of thorax, initial encounter (principal); J84.10 Pulmonary fibrosis, unspecified; J44.9 Chronic obstructive pulmonary disease, unspecified; X58.XXXA Exposure to other specified factors, initial encounter; Y92.9 Unspecified place or not applicable

== ENCOUNTER → 2018-11-02 | Outpatient (REF) | payer MEDICARE | LOC: M LAB REF 17:07 | PROVIDERS: ATTEND Nurse Practitioner Adult Health | DX: C79.31 Secondary malignant neoplasm of brain (principal); C34.90 Malignant neoplasm of unspecified part of unspecified bronchus or lung ==

== ENCOUNTER → 2019-03-05 | Outpatient (CLI) | payer MEDICARE ==
[~2019-03-05] MED LIST changes: +OMEP-172 PO; -OMEP20CA4 PO
--- NOTE | 2019-03-05 15:16 | REPMRS ---
Patient History The patient states she has not had a clinical breast exam in over a year. No known family history of cancer. Benign stereotatic breast biopsy of the left breast, May 24, 2012. Taking estrogen for 30 years. 3D TOMOSYNTHESIS WAS PERFORMED. The Margarita Otero lifetime risk for breast cancer is 6.5%. Digital Mammo Screening Bilat: March 05, 2019 - Exam #: [id number] Bilateral CC and MLO view(s) were taken. Technologist: Jo Ann Bañuelos, Technologist Prior study comparison: February 08, 2018, bilateral digital mammo screening bilat performed at [facility]. January 13, 2016, bilateral digital mammo screening bilat performed at [facility]. FINDINGS: The breast tissue is heterogeneously dense. This may lower the sensitivity of mammography. There has been no change in the appearance of the mammogram from the prior studies. There is a moderate amount of residual fibroglandular tissue which is fairly symmetric. There is no interval development of dominant mass, areas of architectural distortion, or clustered microcalcification typical of malignancy. Assessment: BI-RADS/ACR category 1 mammogram. Negative Mammogram. Recommendation Routine screening mammogram in 1 year (for women over age 40). This mammogram was interpreted with the aid of an FDA-approved computer-aided dectection system. Electronically Signed By: Lucas Casillas MD 03/05/19 0053
== END ==
LOC: M RAD 13:23
PROVIDERS: ATTEND Nurse Practitioner Adult Health
DX: Z12.31 Encounter for screening mammogram for malignant neoplasm of breast (principal); Z79.899 Other long term (current) drug therapy

== ENCOUNTER 2019-11-28 13:31 | Inpatient (IN) | payer MEDICARE ==
[~2019-11-28] VITALS: Ht 157.5 cm; Wt 57.5 kg
[~2019-11-28 13:31] MED LIST changes: -OMEP-172 PO; +OMEP1CAP73 PO
--- NOTE | 2019-11-28 14:12 | REPVR ---
PROCEDURE INFORMATION: Exam: XR Chest, 1 View Exam date and time: 11/28/2019 2:05 PM Age: 64 years old Clinical indication: Chest pain; Type not specified TECHNIQUE: Imaging protocol: XR of the chest Views: 1 view. COMPARISON: CR RIBS UNLATERAL WITH PA CHEST 10/04/2018 3:51 PM FINDINGS: Lungs: Severe COPD and interstitial disease. Pleural space: No pleural effusion. Heart/Mediastinum: No cardiomegaly. Bones/joints: Degenerative change . Other findings: Partial obscuration of the apices by the patient's mandible. IMPRESSION: Severe COPD and interstitial disease. Electronically signed by: Ashu Smith On 11/28/2019 14:12:04 PM
[2019-11-28] MEDS ORDERED: ISOVUE-370 76% 100ML VIAL As Ordered ONE (14:24)
[2019-11-28] MEDS ORDERED: NS 1,000 ML IV SCH (14:25)
[2019-11-28 14:36] LABS: BASO % 0.4 % (0.0-1.0); EOS % 0.1 % (0.0-3.0); HEMATOCRIT 41.3 % (36.0-47.0); HEMOGLOBIN 13.9 g/dl (12.0-15.5); LYMPH # 0.5 10^3/uL (1.5-5.0); LYMPH % 4.6 % (24.0-44.0); MEAN CORPUSCULAR HEMOGLOBIN 31.3 pg (27.0-33.0); MEAN CORPUSCULAR HGB CONC 33.7 g/dl (32.0-36.5); MONO # 1.7 10^3/uL (0.0-0.8); MONO % 15.5 % (0.0-5.0); NEUTROPHILS # 8.5 10^3/uL (1.5-8.5); NEUTROPHILS % 78.9 % (36.0-66.0); PLATELET COUNT, AUTOMATED 170 10^3/uL (150-450); RED BLOOD COUNT 4.44 10^6/uL (4.00-5.40); WHITE BLOOD COUNT 10.7 10^3/uL (4.0-10.0)
[2019-11-28 14:48] LABS: INR 1.05; PARTIAL THROMBOPLASTIN TIME 29.5 SECONDS (25.0-38.4)
[2019-11-28 15:12] LABS: ALBUMIN 3.6 GM/DL (3.2-5.2); ALT/SGPT 30 U/L (12-78); BILIRUBIN,DIRECT 0.3 MG/DL (0.0-0.2); BILIRUBIN,TOTAL 0.7 MG/DL (0.2-1.0); BLOOD UREA NITROGEN 26 MG/DL (7-18); CARBON DIOXIDE LEVEL 23 MEQ/L (21-32); CHLORIDE LEVEL 104 MEQ/L (98-107); CK-MB VALUE MASS 14.4 NG/ML (<3.6); CPK CREATINE PHOSPHOKINASE 2390 U/L (26-192); CREATININE FOR GFR 0.94 MG/DL (0.55-1.30); FREE T4 1.15 NG/DL (0.76-1.46); GLOMERULAR FILTRATION RATE > 60.0 (>45); GLUCOSE, FASTING 94 MG/DL (70-100); SODIUM LEVEL 137 MEQ/L (136-145); THYROID STIMULATING HORMONE 0.641 uIU/ML (0.358-3.740); TOTAL PROTEIN 7.1 GM/DL (6.4-8.2); TROPONIN I < 0.02 NG/ML (< 0.10)
--- NOTE | 2019-11-28 15:25 | REPVR ---
PROCEDURE INFORMATION: Exam: CT Abdomen And Pelvis With Contrast Exam date and time: 11/28/2019 3:00 PM Age: 64 years old Clinical indication: Injury or trauma; Fall; Initial encounter; Blunt; Upper TECHNIQUE: Imaging protocol: Computed tomography of the abdomen and pelvis with intravenous contrast. Radiation optimization: All CT scans at this facility use at least one of these dose optimization techniques: automated exposure control; mA and/or kV adjustment per patient size (includes targeted exams where dose is matched to clinical indication); or iterative reconstruction. Contrast material: ISO 370; Contrast volume: 100 ml; Contrast route: INTRAVENOUS (IV); COMPARISON: CT ABD PELVIS WITH CONTRAST 08/31/2018 1:07 PM FINDINGS: Lungs: The lungs will be discussed in the CT of the chest. Liver: The liver is fatty but not enlarged. Gallbladder and bile ducts: Normal. No calcified stones. No ductal dilation. Pancreas: Normal. No ductal dilation. Spleen: Normal. No splenomegaly. Adrenals: There may be stable enlargement of the adrenal glands difficult to determine to artifact from the patient's arms. Kidneys and ureters: Normal. No hydronephrosis. Stomach and bowel: Retained fecal material is seen in the colon. The diverticulosis. Appendix: No evidence of appendicitis. Intraperitoneal space: Unremarkable. No free air. No significant fluid collection. Vasculature: Unremarkable. No abdominal aortic aneurysm. Lymph nodes: Unremarkable. No enlarged lymph nodes. Bladder: Unremarkable as visualized. Reproductive: There is a possible tampon in the vagina. The uterus is been removed. Bones/joints: The spine will be dictated in this specific spine exam as a separate dictation. Soft tissues: Unremarkable. Other findings: Artifact is noted from the patient's arms by his side. IMPRESSION: Limited examination due to artifact from patient's arms. No obvious abnormality is identifiable. Electronically signed by: Angel Peterson On 11/28/2019 15:25:55 PM
--- NOTE | 2019-11-28 15:30 | REPVR ---
PROCEDURE INFORMATION: Exam: CT Cervical Spine Without Contrast Exam date and time: 11/28/2019 3:00 PM Age: 64 years old Clinical indication: Injury or trauma; Fall; Initial encounter; Blunt trauma TECHNIQUE: Imaging protocol: Computed tomography images of the cervical spine without contrast. Radiation optimization: All CT scans at this facility use at least one of these dose optimization techniques: automated exposure control; mA and/or kV adjustment per patient size (includes targeted exams where dose is matched to clinical indication); or iterative reconstruction. COMPARISON: No relevant prior studies available. FINDINGS: Limitations: The spinous processes of C6 through T2 are partially or completely outside the field of view. Vertebrae: No acute fracture of the cervical spine is identified. Please note, portions of the spinous processes of C6 through T2 are outside the field of view. A partially visualized sclerotic/chronic compression fracture is noted at T3. Moderate vertebral body height loss is noted. Discs/Spinal canal/Neural foramina: Moderate degenerative changes of the cervical spine are present. There is no severe spinal canal stenosis. Multilevel neural foraminal narrowing from uncinate spurring and facet arthropathy is noted. Soft tissues: Unremarkable. Lungs: Severe centrilobular emphysema is noted in the lung apices. IMPRESSION: 1. Limited exam as discussed above 2. No acute cervical spine fracture 3. Chronic T3 compression fracture 4. Chronic degenerative changes of the cervical spine Electronically signed by: Jj Felix On 11/28/2019 15:30:31 PM
--- NOTE | 2019-11-28 15:32 | REPVR ---
PROCEDURE INFORMATION: Exam: CT Chest With Contrast Exam date and time: 11/28/2019 3:00 PM Age: 64 years old Clinical indication: Injury or trauma; Fall; Initial encounter; Blunt trauma (contusions or hematomas) TECHNIQUE: Imaging protocol: Computed tomography of the chest with intravenous contrast. Radiation optimization: All CT scans at this facility use at least one of these dose optimization techniques: automated exposure control; mA and/or kV adjustment per patient size (includes targeted exams where dose is matched to clinical indication); or iterative reconstruction. Contrast material: ISO 370; Contrast volume: 100 ml; Contrast route: INTRAVENOUS (IV); COMPARISON: CT Chest with contrast 08/31/2018 1:07 PM FINDINGS: Lungs: Lungs are heterogeneous with areas of hyperlucency especially in the apices consistent with moderate to advanced emphysema. Pleural space: There is a small peripheral 5 mm pleural base lesion on image 501/73 possibly a pleural tag which appears new. Heart: Unremarkable. No cardiomegaly. No pericardial effusion. Aorta: There is an ectatic ascending aorta 30 mm. Lymph nodes: Unremarkable. No enlarged lymph nodes. Bones/joints: The dorsal spine and upper lumbar spine will discussed in a separate dictation. Please see that report. There is an abnormality involving the inferior endplate of T8 which is stable possibly a Schmorl's node in other lesion which is unchanged. This may be a old pathologic fracture. There is a new pathologic fracture questioned of T3 and an inferior endplate T5 fracture. These 2 are new. There is a subtle deformity involving posterior 10th right rib which is stable consistent with no fracture that is healed. Soft tissues: Unremarkable. Other findings: The abdomen and pelvis will be discussed in a separate dictation. Moderate artifact is seen from the patient's arms that are scanned by her side. IMPRESSION: 1. Limited evaluation due to artifact from patient's arms. There is no evidence of a pneumothorax or acute fracture with a 4 mm new pleural based density on the left. 2. Small pleural base lesion left lower lobe. For patients at low risk (minimal or absent history of smoking and of other known risk factors), no routine follow-up is indicated. For patients at high risk (history of smoking or of other known risk factors), consider optional CT at 12 months. (Adam et al., Fleischner Society, 2017). 3. Emphysema. 4. Dorsal spine fractures new since the CT scan of 2019 be discussed in more detail on the dorsal spine dedicated CT. Electronically signed by: Angel Peterson On 11/28/2019 15:32:02 PM
--- NOTE | 2019-11-28 15:35 | REPVR ---
PROCEDURE INFORMATION: Exam: CT Head Without Contrast Exam date and time: 11/28/2019 3:00 PM Age: 64 years old Clinical indication: Injury or trauma; Fall; Initial encounter; Blunt trauma (contusions or hematomas) TECHNIQUE: Imaging protocol: Computed tomography of the head without contrast. Radiation optimization: All CT scans at this facility use at least one of these dose optimization techniques: automated exposure control; mA and/or kV adjustment per patient size (includes targeted exams where dose is matched to clinical indication); or iterative reconstruction. COMPARISON: CT Head without contrast 02/23/2016 6:20 PM FINDINGS: Brain: There is no acute intracranial hemorrhage, cerebral edema, or midline shift. A stable benign calcification is noted in the right lentiform nucleus. A 15 mm subcortical cystic area is noted along the right cerebral convexity, unchanged from the prior exam. This may represent cystic encephalomalacia or less likely a cystic lesion or neuroglial cyst. A small area of encephalomalacia is also noted in the medial left cerebellar hemisphere, unchanged from the prior exam. Chronic microvascular ischemic changes are seen in the periventricular white matter. Age-related cerebral and cerebellar volume loss is present. Ventricles: Mild ex vacuo dilation of the lateral and third ventricles is noted. Bones/joints: No acute fracture. Sinuses: There is no acute sinusitis. Mastoid air cells: The mastoid air cells are clear. Orbits: The included orbital structures are unremarkable. Vasculature: Atherosclerotic calcifications are seen involving the cavernous carotid arteries. Soft tissues: Unremarkable. IMPRESSION: 1. No acute intracranial abnormality. 2. Chronic findings as discussed above. Electronically signed by: Jj Felix On 11/28/2019 15:35:26 PM
--- NOTE | 2019-11-28 15:36 | REPVR ---
PROCEDURE INFORMATION: Exam: CT Thoracic Spine Without Contrast Exam date and time: 11/28/2019 3:00 PM Age: 64 years old Clinical indication: Injury or trauma; Fall; Initial encounter; Blunt trauma (contusions or hematomas) TECHNIQUE: Imaging protocol: Computed tomography images of the thoracic spine without contrast. Radiation optimization: All CT scans at this facility use at least one of these dose optimization techniques: automated exposure control; mA and/or kV adjustment per patient size (includes targeted exams where dose is matched to clinical indication); or iterative reconstruction. COMPARISON: CT chest for which reconstructions are available dated 08/31/2018. FINDINGS: Vertebrae: There is a stable pathologic appearing compression fracture most severe in the waist involving T8. There is an inferior endplate compression fracture approximately 50% new of T5. There is a sclerotic compression fracture of the superior and inferior endplates approximately 70% of T3. Discs/Spinal canal/Neural foramina: No significant disc protrusion. No severe spinal canal stenosis. No significant neural foraminal narrowing. Soft tissues: See "Lungs" finding. Lungs: The lungs were discussed in the CT of the chest. Visualized abdomen was discussed in that separate CT. IMPRESSION: Since the CT scan of the chest the pathologic appearing compression fracture is stable of T8. There is a new inferior endplate non pathologic fracture of T5 and pathologic compression fracture new of T3. Electronically signed by: Angel Peterson On 11/28/2019 15:36:19 PM
--- NOTE | 2019-11-28 15:38 | REPVR ---
PROCEDURE INFORMATION: Exam: CT Maxillofacial Without Contrast Exam date and time: 11/28/2019 3:00 PM Age: 64 years old Clinical indication: Injury or trauma; Fall; Initial encounter; Blunt trauma (contusions or hematomas); Nose TECHNIQUE: Imaging protocol: Computed tomography images of the face without contrast. Radiation optimization: All CT scans at this facility use at least one of these dose optimization techniques: automated exposure control; mA and/or kV adjustment per patient size (includes targeted exams where dose is matched to clinical indication); or iterative reconstruction. COMPARISON: No relevant prior studies available. FINDINGS: Orbits: Orbits are normal. Globes are unremarkable. Bones/joints: No acute fracture. Sinuses: Normal. No air-fluid levels. Soft tissues: Unremarkable. IMPRESSION: No acute findings. Electronically signed by: Jj Felix On 11/28/2019 15:38:34 PM
--- NOTE | 2019-11-28 15:43 | REPVR ---
PROCEDURE INFORMATION: Exam: CT Lumbar Spine Without Contrast Exam date and time: 11/28/2019 3:00 PM Age: 64 years old Clinical indication: Injury or trauma; Fall; Initial encounter; Blunt trauma (contusions or hematomas) TECHNIQUE: Imaging protocol: Computed tomography images of the lumbar spine without contrast. Radiation optimization: All CT scans at this facility use at least one of these dose optimization techniques: automated exposure control; mA and/or kV adjustment per patient size (includes targeted exams where dose is matched to clinical indication); or iterative reconstruction. COMPARISON: No relevant prior studies available. FINDINGS: Vertebrae: No acute fracture. Normal alignment. Discs/Spinal canal/Neural foramina: There is no evidence of a disc protrusion or disc extrusion. The foramina appear unremarkable with mild foraminal narrowing due to spurring otherwise seen at L5/S1. Central disc bulging is questioned at L4/5 with mild degenerative disc disease at L5/S1. Soft tissues: Discussed in the CT abdomen and pelvis. IMPRESSION: No acute findings. Electronically signed by: Angel Peterson On 11/28/2019 15:43:54 PM
--- NOTE | 2019-11-28 15:52 | REPVR ---
PROCEDURE INFORMATION: Exam: XR Left Hand Exam date and time: 11/28/2019 3:43 PM Age: 64 years old Clinical indication: Pain; Finger(s); Left; Additional info: Trauma TECHNIQUE: Imaging protocol: XR Left hand. Views: 3 or more views. COMPARISON: No relevant prior studies available. FINDINGS: Bones/joints: Moderate arthritic changes seen involving the 1st metacarpal-carpal joint. Mild arthritic changes seen within the interphalangeal joints. There is no fracture, dislocation or subluxation. Soft tissues: Normal. IMPRESSION: Arthritis, no fracture. Electronically signed by: Angel Peterson On 11/28/2019 15:52:39 PM
--- NOTE | 2019-11-28 15:57 | REPVR ---
PROCEDURE INFORMATION: Exam: XR Left Foot Complete Exam date and time: 11/28/2019 3:44 PM Age: 64 years old Clinical indication: Pain; Foot; Left; Additional info: Trauma TECHNIQUE: Imaging protocol: XR Left foot. Views: 3 or more views. COMPARISON: No relevant prior studies available. FINDINGS: Bones/joints: There may be a 1st toe bunion surgery defect. There is hallux valgus deformity. There may be interphalangeal arthritic changes of the mid distal phalanges of the 2nd to 5th digits are poorly seen due to the toes being clenched. Within the limits of this exam there is no fracture, dislocation or subluxation. Soft tissues: Normal. IMPRESSION: Postoperative changes and hallux valgus. No fracture given limitations of clenched toes. Electronically signed by: Angel Peterson On 11/28/2019 15:57:14 PM
[2019-11-28] MEDS ORDERED: MAALOX 30 ML SUSP *UDC PO PRN (16:45)
[2019-11-28] MEDS ORDERED: MOM 30ML SUSPENSION UDC PO PRN (16:45)
--- NOTE | 2019-11-28 17:04 | HPEPDOC ---
General Date of Admission Date of Service: Nov 28, 2019 Chief Complaint The patient is a 64-year-old female admitted with a reason for visit of FALL. 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 Family found pt lying on the floor for many hours and called ambulance to get her here. Pt does remember falling down but nothing else. no headache, no CP,no SOB , no N/V/D Pt is not a good historian, hx was obtained from MD, reviewing her old charts. Home Medications Scheduled Calcium (Calcium) 500 Mg Tab, 500 MG PO BID, (Reported) Duloxetine Hcl (Duloxetine HCl) 60 Mg Cap, 60 MG PO DAILY, (Reported) Levetiracetam (Keppra) 500 Mg Tab, 500 MG PO BID, (Reported) Multivitamins (Thera M Plus Tablet) 1 Tab Tab, 1 TAB PO DAILY, (Reported) Omeprazole (Omeprazole) 20 Mg Cap, 20 MG PO BID, (Reported) Quetiapine Fumarate (Seroquel) 50 Mg Tab, 50 MG PO QHS, (Reported) Scheduled PRN Oxycodone HCl/Acetaminophen (Oxycodone-Acetaminophen 5-325) 1 Tab Tab, 1 TAB PO TID PRN for PAIN, (Reported) Allergies Coded Allergies: No Known Allergies (Unverified , 10/10/17) Past Medical History Medical History 1. Depression 2. Hyperlipidemia 3. Chronic Insomnia 4. Hx of Lung Cancer w/ Brain met. s/p radiation and chemotherapy at [place] in 2012. 5. Frequent Falls Surgical History 1. tonsillectomy 2. Hystrectomy 3. Multiple Bunions removed from both feet Family History family Hx reviewed, non contributory Social History * Smoker: current smoker, cigarettes Alcohol: Denies Drugs: denies lives alone A-FIB/CHADSVASC A-FIB History Current/History of A-Fib/PAF?: No Review of Systems Constitutional: Denies: Chills, Fever, Malaise, Night Sweats, Weakness, Fatigue, Weight Loss, Lethargy, Other Eyes: Denies: Pain, Vision change, Conjunctivae inflammation, Eyelid inflammation, Redness, Other ENT: Denies: Head Aches, Ear Pain, Dysphagia, Sinus Congestion, Post Nasal Drip, Sore Throat, Epistaxis, Other Symptoms Skin: Denies: Rash, Lesions, Jaundice, Bruising, Itching, Dry, Breakdown, Nail Changes, Other Pulmonary: Denies: Dyspnea, Cough, Pleuritic Chest Pain, Other Symptoms Cardiovascular: Denies: Chest Pain, Palpitations, Orthopnea, Paroxysmal Noc. Dyspnea, Edema, Lt Headedness, Other Symptoms Gastrointestinal: Denies: Nausea, Vomiting, Abdominal Pain, Diarrhea, Constipation, Melena, Hematochezia, Other Symptoms Genitourinary: Denies: Dysuria, Frequency, Incontinence, Hematuria, Retention, Other Symptoms Hematologic: Denies: Bruising, Bleeding Excessively, Petecchia, Purpura, Enlarged Lymph Nodes, Other Hematologic Endocrine: Denies: Polydipsia, Polyphagia, Polyuria, Heat Intolerance, Cold Intolerance, Other Endocrine Sx Musculoskeletal: Denies: Neck Pain, Back Pain, Shoulder Pain, Arm Pain, Hand Pain, Leg Pain, Foot Pain, Joint Pain, Muscle Pain, Spasms, Other Symptoms Neurological: Reports: Other Symptoms (fall) Psych: Denies: Mood Normal, Anxiety, Depression, Memory Issues, Thoughts of Self Harm, Anger, Thoughts of Harming Other, Other Psych Physical Examination General Exam: Positive: Alert, Cooperative Eye Exam: Positive: PERRLA, Conjunctiva & lids normal ENT Exam: Positive: Atraumatic Neck Exam: Positive: Supple Chest Exam: Positive: Clear to auscultation Heart Exam: Positive: Rate Normal, Normal S1, Normal S2 Abdomen Exam: Positive: Normal bowel sounds Extremity Exam: Positive: Normal pulses Skin Exam: Positive: Nl turgor and temperature Neuro Exam: Positive: Strength at 5/5 X4 ext, Sensation Intact, Cranial Nerves 3-12 NL Psych Exam: Positive: Mental status NL, Oriented x 3 Vital Signs Vital Signs Date Time Temp Pulse Resp B/P (MAP) Pulse Ox O2 Delivery O2 Flow Rate FiO2 11/28/19 15:36 93 Room Air 11/28/19 13:40 99.2 91 22 115/64 Laboratory Data Labs 24H Laboratory Tests 2 11/28/19 14:20: Immature Granulocyte % (Auto) 0.5, Neutrophils (%) (Auto) 78.9H, Lymphocytes (%) (Auto) 4.6L, Monocytes (%) (Auto) 15.5H, Eosinophils (%) (Auto) 0.1, Basophils (%) (Auto) 0.4, Neutrophils # (Auto) 8.5, Lymphocytes # (Auto) 0.5L, Monocytes # (Auto) 1.7H, Eosinophils # (Auto) 0.0, Basophils # (Auto) 0.0, Nucleated Red Blood Cells % (auto) 0.0, Prothrombin Time 14.0, Prothromb Time International Ratio 1.05, Activated Partial Thromboplast Time 29.5, Anion Gap 10, Glomerular Filtration Rate > 60.0, Calcium Level 9.0, Total Bilirubin 0.7, Direct Bilirubin 0.3H, Aspartate Amino Transf (AST/SGOT) 77H, Alanine Aminotransferase (ALT/SGPT) 30, Alkaline Phosphatase 104, Total Creatine Kinase 2390H, Creatine Kinase MB 14.4H, Creatine Kinase MB Relative Index 0.60, Troponin I < 0.02, Total Protein 7.1, Albumin 3.6, Albumin/Globulin Ratio 1.0L, Thyroid Stimulating Hormone (TSH) 0.641, Free Thyroxine 1.15 CBC/BMP Laboratory Tests 11/28/19 14:20 Problems (1) Syncope and collapse Status: Acute Problem Text: Admit to PCU with tele Serial trop MRI brain MRA brain and carotids Echocardiogram fall and seizure precautions PT/OT eval Continue home meds DVT prophylax: SCDs Diet Regular Activity As tolerated. (2) Rhabdomyolysis Status: Acute Problem Text: secondary to fall CK 2390 IVF NS at 100cc/hr Repeat labs in am (3) Fall Status: Acute Problem Text: unknown etiology, she had extensive SWENSON done in ED all negative, except T3 compression Fx and T8 compressionFx fall precaution pain management PT/OT eval (4) History of lung cancer Status: Chronic Problem Text: pt follows up with cancer specialist at [place] Plan / VTE VTE Prophylaxis Ordered?: Yes CRYSTAL SORIA MD Nov 28, 2019 17:03
[2019-11-28] MEDS ORDERED: ROSU20TA5 PO (17:22)
--- NOTE | 2019-11-28 19:14 | REPVR ---
PROCEDURE INFORMATION: Exam: MR Head Without Contrast Exam date and time: 11/28/2019 6:11 PM Age: 64 years old Clinical indication: Syncope and collapse; Patient HX: HX brain tumor, recent onset syncopal episodes, confusion TECHNIQUE: Imaging protocol: MR of the head without contrast. COMPARISON: 1. MRI-Brain W/O FOLL BY WITH 02/27/2018 2:10 PM 2. MRI-Brain W/O FOLL BY WITH 05/23/2014 9:39:28 AM FINDINGS: Brain: No restricted diffusion is seen to suggest acute infarction. There is no acute intracranial hemorrhage, cerebral edema, or midline shift. Mild/moderate cerebral and cerebellar substance loss is present. A small area of encephalomalacia is noted in the medial left cerebellar hemisphere. A 2 cm area of cystic encephalomalacia is noted in the right parietal convexity, unchanged from the prior exam. A calcification is noted in the superior right lentiform nucleus. Scattered increased T2 and FLAIR signal within the periventricular and subcortical white matter is present. This is nonspecific but likely related to chronic microangiopathic ischemic change. Multiple small foci of susceptibility artifact on the gradient echo weighted sequence are noted within the cerebral hemispheres, suggestive of amyloid angiopathy or chronic hypertensive microbleeds. Ventricles: Moderate ex vacuo dilation of the lateral and third ventricles is noted. Bones/joints: Unremarkable. Sinuses: Normal as visualized. No acute sinusitis. Mastoid air cells: Normal as visualized. No mastoid effusion. Orbits: Unremarkable. Soft tissues: Unremarkable. IMPRESSION: 1. No acute intracranial abnormality. 2. Chronic findings as discussed above. Electronically signed by: Jj Felix On 11/28/2019 19:13:54 PM
--- NOTE | 2019-11-28 19:16 | REPVR ---
PROCEDURE INFORMATION: Exam: MR Angiography Neck Without Contrast Exam date and time: 11/28/2019 6:11 PM Age: 64 years old Clinical indication: Syncope and collapse; Patient HX: HX brain tumor, recent onset syncopal episodes, confusion TECHNIQUE: Imaging protocol: Magnetic resonance angiography of the neck without contrast. COMPARISON: CT Spine,cervical w/o contrast 11/28/2019 2:33 PM FINDINGS: Right common carotid artery: No stenosis. No dissection or occlusion. Right internal carotid artery: No stenosis of the extracranial segment. No dissection or occlusion. Right external carotid artery: No stenosis. No dissection or occlusion of the origin. Right vertebral artery: No stenosis. No dissection or occlusion. Left common carotid artery: No stenosis. No dissection or occlusion. Left internal carotid artery: No stenosis of the extracranial segment. No dissection or occlusion. Left external carotid artery: No stenosis. No dissection or occlusion of the origin. Left vertebral artery: No stenosis. No dissection or occlusion. IMPRESSION: No stenosis or occlusion. REFERENCES: NASCET CRITERIA. The degree of internal carotid artery stenosis is based on NASCET criteria. Normal is no stenosis. Mild is less than 50% stenosis. Moderate is 50-69% stenosis. Severe is 70% to 99% stenosis. Total occlusion is no detectable patent lumen. Electronically signed by: Jj Felix On 11/28/2019 19:16:27 PM
--- NOTE | 2019-11-28 19:19 | REPVR ---
PROCEDURE INFORMATION: Exam: MR Angiogram Head Without Contrast, Arteries Exam date and time: 11/28/2019 6:11 PM Age: 64 years old Clinical indication: Syncope and collapse; Patient HX: HX brain tumor, recent onset syncopal episodes, confusion TECHNIQUE: Imaging protocol: MR angiogram head without contrast. Exam focused on the arteries. COMPARISON: MRI-Brain W/O FOLL BY WITH 02/27/2018 2:10 PM FINDINGS: ANTERIOR CIRCULATION: Right internal carotid artery: Intracranial segment is patent with no significant stenosis. No aneurysm. Right middle cerebral artery: The right middle cerebral artery is patent. There is a 3 mm inferiorly directed aneurysm at the right MCA bifurcation. Right anterior cerebral artery: No occlusion or significant stenosis. No aneurysm. Left internal carotid artery: Intracranial segment is patent with no significant stenosis. No aneurysm. Left middle cerebral artery: No occlusion or significant stenosis. No aneurysm. Left anterior cerebral artery: No occlusion or significant stenosis. No aneurysm. POSTERIOR CIRCULATION: Right vertebral artery: No occlusion or significant stenosis. No aneurysm. Left vertebral artery: No occlusion or significant stenosis. No aneurysm. Basilar artery: No occlusion or significant stenosis. No aneurysm. Right posterior cerebral artery: No occlusion or significant stenosis. No aneurysm. Left posterior cerebral artery: No occlusion or significant stenosis. No aneurysm. IMPRESSION: 1. 3 mm right MCA bifurcation aneurysm 2. No large vessel occlusion Electronically signed by: Jj Felix On 11/28/2019 19:18:49 PM
[2019-11-28] MEDS: NS 1,000 ML IV SCH (21:00)
[2019-11-28] MEDS: QUEtiapine FUMARATE 50 MG TAB PO SCH (21:03)
[2019-11-28] MEDS: ROSUVASTATIN 10 MG TAB (CRESTOR) PO SCH (21:03)
[2019-11-28] MEDS: DOCUSATE SODIUM 100 MG CAP PO SCH (21:04)
[2019-11-28] MEDS: PERCOCET 5MG/325MG TAB PO PRN (21:10)
[2019-11-29 04:00] VITALS: BP 126/60
[2019-11-29 05:31] LABS: HEMOGLOBIN 12.4 g/dl (12.0-15.5); MEAN CORPUSCULAR HEMOGLOBIN 30.6 pg (27.0-33.0); MEAN CORPUSCULAR HGB CONC 32.6 g/dl (32.0-36.5); MEAN CORPUSCULAR VOLUME 93.8 fl (80.0-96.0); PLATELET COUNT, AUTOMATED 170 10^3/uL (150-450); RED BLOOD COUNT 4.05 10^6/uL (4.00-5.40); WHITE BLOOD COUNT 8.4 10^3/uL (4.0-10.0)
[2019-11-29 06:27] LABS: ALBUMIN 2.9 GM/DL (3.2-5.2); ALT/SGPT 23 U/L (12-78); BILIRUBIN,TOTAL 0.4 MG/DL (0.2-1.0); BLOOD UREA NITROGEN 21 MG/DL (7-18); CARBON DIOXIDE LEVEL 25 MEQ/L (21-32); CHLORIDE LEVEL 110 MEQ/L (98-107); CPK CREATINE PHOSPHOKINASE 1315 U/L (26-192); CREATININE FOR GFR 0.88 MG/DL (0.55-1.30); GLOMERULAR FILTRATION RATE > 60.0 (>45); GLUCOSE, FASTING 85 MG/DL (70-100); MAGNESIUM LEVEL 2.1 MG/DL (1.8-2.4); POTASSIUM SERUM 4.1 MEQ/L (3.5-5.1); SODIUM LEVEL 142 MEQ/L (136-145); TOTAL PROTEIN 5.9 GM/DL (6.4-8.2); TROPONIN I < 0.02 NG/ML (< 0.10)
[2019-11-29 08:00] VITALS: BP 135/73
[2019-11-29] MEDS: NS 1,000 ML IV SCH (08:11)
[2019-11-29] MEDS: levETIRAcetam 250MG TABLET (KEPPRA) PO SCH (08:12)
[2019-11-29] MEDS: DOCUSATE SODIUM 100 MG CAP PO SCH ×2 (08:12→21:17)
[2019-11-29] MEDS: DULoxetine 30 MG CAP (CYMBALTA) PO SCH (08:12)
[2019-11-29] MEDS: OMEPRAZOLE 20 MG CAP PO SCH (08:13)
--- NOTE | 2019-11-29 10:14 | IPNPDOC ---
Subjective Date Seen The patient was seen on 11/29/19. Subjective Chief Complaint/HPI pt is comfortable, in no distress General: Denies: ROS Unobtainable, Chills, Night Sweats, Fatigue, Malaise, Normal Appetite, Other Symptoms Constitutional: Denies: Chills, Fever, Malaise, Night Sweats, Weakness, Fatigue, Weight Loss, Lethargy, Other Pulmonary: Denies: Dyspnea, Cough, Pleuritic Chest Pain, Other Symptoms Cardiovascular: Denies: Chest Pain, Palpitations, Orthopnea, Paroxysmal Noc. Dyspnea, Edema, Lt Headedness, Other Symptoms Gastrointestinal: Denies: Nausea, Vomiting, Abdominal Pain, Diarrhea, Constipation, Melena, Hematochezia, Other Symptoms Musculoskeletal: Denies: Neck Pain, Back Pain, Shoulder Pain, Arm Pain, Hand Pain, Leg Pain, Foot Pain, Joint Pain, Muscle Pain, Spasms, Other Symptoms Neurological: Denies: Weakness, Numbness, Incoordination, Change in speech, Confusion, Seizures, Other Symptoms Psych: Denies: Mood Normal, Anxiety, Depression, Memory Issues, Thoughts of Self Harm, Anger, Thoughts of Harming Other, Other Psych Objective Physical Examination Neck Exam: Positive: Supple Chest Exam: Positive: Clear to auscultation Heart Exam: Positive: Rate Normal, Normal S1, Normal S2 Abdomen Exam: Positive: Normal bowel sounds Extremity Exam: Positive: Normal pulses Skin Exam: Positive: Nl turgor and temperature Neuro Exam: Positive: Strength at 5/5 X4 ext, Sensation Intact, Cranial Nerves 3-12 NL Assessment /Plan Problems (1) Syncope and collapse Status: Acute Problem Text: Admitted to PCU with tele Serial trop are negative MRI brain: WNL MRA brain and carotids: small 3mm Rt MCA bifurcation aneurysm, no carotid stenosis Echocardiogram: pending fall and seizure precautions PT/OT eval in progress: Home VS rehab Continue home meds DVT prophylax: SCDs Diet Regular Activity As tolerated. (2) Rhabdomyolysis Status: Acute Problem Text: secondary to fall CK 2390 on admission+ now 1315 DC IVF, encourage oral hydration Repeat labs in am (3) Fall Status: Acute Problem Text: Unknown etiology, she had extensive SWENSON done in ED all negative, except T3 compression Fx and T8 compressionFx fall precaution pain management PT/OT eval called (4) Weakness Status: Acute Problem Text: PT/OT eval might require rehab placement (5) History of lung cancer Status: Chronic Problem Text: pt follows up with cancer specialist (dr Maldonado [phone]) at [place] Plan/VTE VTE Prophylaxis Ordered?: Yes VS, I&O, 24H, Fishbone Vital Signs/I&O Vital Signs Date Time Temp Pulse Resp B/P (MAP) Pulse Ox O2 Delivery O2 Flow Rate FiO2 11/29/19 08:00 99.3 84 19 135/73 (93) 96 Nasal Cannula 2.0 I&O- Last 24 Hours up to 6 AM 11/29/19 06:00 Intake Total 1300 ml Balance 1300 ml Laboratory Data 24H LABS Laboratory Tests 2 11/28/19 14:20: Immature Granulocyte % (Auto) 0.5, Neutrophils (%) (Auto) 78.9H, Lymphocytes (%) (Auto) 4.6L, Monocytes (%) (Auto) 15.5H, Eosinophils (%) (Auto) 0.1, Basophils (%) (Auto) 0.4, Neutrophils # (Auto) 8.5, Lymphocytes # (Auto) 0.5L, Monocytes # (Auto) 1.7H, Eosinophils # (Auto) 0.0, Basophils # (Auto) 0.0, Nucleated Red Blood Cells % (auto) 0.0, Prothrombin Time 14.0, Prothromb Time International Ratio 1.05, Activated Partial Thromboplast Time 29.5, Anion Gap 10, Glomerular Filtration Rate > 60.0, Calcium Level 9.0, Total Bilirubin 0.7, Direct Bilirubin 0.3H, Aspartate Amino Transf (AST/SGOT) 77H, Alanine Aminotransferase (ALT/SGPT) 30, Alkaline Phosphatase 104, Total Creatine Kinase 2390H, Creatine Kinase MB 14.4H, Creatine Kinase MB Relative Index 0.60, Troponin I < 0.02, Total Protein 7.1, Albumin 3.6, Albumin/Globulin Ratio 1.0L, Thyroid Stimulating Hormone (TSH) 0.641, Free Thyroxine 1.15 11/28/19 22:50: Troponin I < 0.02 11/29/19 05:12: Nucleated Red Blood Cells % (auto) 0.0, Anion Gap 7L, Glomerular Filtration Rate > 60.0, Calcium Level 8.0L, Total Bilirubin 0.4, Aspartate Amino Transf (AST/SGOT) 47H, Alanine Aminotransferase (ALT/SGPT) 23, Alkaline Phosphatase 91, Total Creatine Kinase 1315H, Troponin I < 0.02, Total Protein 5.9L, Albumin 2.9L, Albumin/Globulin Ratio 1.0L, Magnesium Level 2.1 CBC/BMP Laboratory Tests 11/28/19 14:20 11/29/19 05:12 CRYSTAL SORIA MD Nov 29, 2019 10:14
[2019-11-29] MEDS ORDERED: SLF 3 ML SYR IV PRN (11:00)
[2019-11-29 12:00] VITALS: BP 102/64
[2019-11-29] MEDS: SLF 3 ML SYR IV SCH ×2 (14:00→21:18)
[2019-11-29 16:00] VITALS: BP 110/55
[2019-11-29 20:00] VITALS: BP 122/59
[2019-11-29] MEDS: QUEtiapine FUMARATE 50 MG TAB PO SCH (21:17)
[2019-11-29] MEDS: ACETAMINOPHEN TAB 650MG DOSE (2X325MG) PO PRN (21:18)
[2019-11-29] MEDS: ROSUVASTATIN 10 MG TAB (CRESTOR) PO SCH (21:18)
[2019-11-30] VITALS (14 sets, daily range): BP systolic 66–112; BP diastolic 35–78
[2019-11-30] MEDS: SLF 3 ML SYR IV SCH ×3 (06:17→20:56)
[2019-11-30] MEDS: ACETAMINOPHEN TAB 650MG DOSE (2X325MG) PO PRN (06:18)
[2019-11-30] MEDS ORDERED: PREVNAR 13 VACCINE SYRINGE IM ONE (09:00)
[2019-11-30] MEDS: DOCUSATE SODIUM 100 MG CAP PO SCH ×2 (09:09→20:56)
[2019-11-30] MEDS: DULoxetine 30 MG CAP (CYMBALTA) PO SCH (09:09)
[2019-11-30] MEDS: OMEPRAZOLE 20 MG CAP PO SCH (09:10)
[2019-11-30] MEDS: PERCOCET 5MG/325MG TAB PO PRN (09:10)
[2019-11-30] MEDS: levETIRAcetam 250MG TABLET (KEPPRA) PO SCH (09:11)
--- NOTE | 2019-11-30 11:35 | IPNPDOC ---
Text Note Date of Service The patient was seen on 11/30/19. NOTE Subjective: No any acute events overnight. 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 MRI brain: WNL, MRA brain and carotids: small 3mm Rt MCA bifurcation aneurysm, no carotid stenosis. Syncope and collapse Serial trop are negative MRI brain: WNL MRA brain and carotids: small 3mm Rt MCA bifurcation aneurysm, no carotid stenosis Echocardiogram: pending fall and seizure precautions PT/OT eval rec rehab Rhabdomyolysis Improved continue oral hydration Fall most likely vasovagal, she had extensive SWENSON done in ED all negative, except T3 compression Fx and T8 compression Fx most likely 2/2 mets. Pt will need Zoledronate Iv in the outpt settings fall precaution pain management Weakness c/w PT/OT History of lung cancer pt follows up with cancer specialist (dr Maldonado [phone]) at [place] VS,[place], I+O VS, [place], I+O Vital Signs Date Time Temp Pulse Resp B/P (MAP) Pulse Ox O2 Delivery O2 Flow Rate FiO2 11/30/19 09:40 18 11/30/19 09:10 Room Air 11/30/19 08:00 97.8 83 103/53 (70) 93 2.0 I&O- Last 24 Hours up to 6 AM 11/30/19 06:00 Intake Total 1320 ml Output Total 350 ml Balance 970 ml JULIENNE ZUNIGA DO Nov 30, 2019 11:35
[2019-11-30] MEDS ORDERED: ZOLEDRONIC ACID 3 MG in D5W 100 ML IV ONE (11:45)
[2019-11-30] MEDS ORDERED: NS 1,000 ML IV ONE (12:30)
[2019-11-30 13:21] LABS: BASO % 0.2 % (0.0-1.0); EOS # 0.2 10^3/uL (0.0-0.5); EOS % 2.6 % (0.0-3.0); HEMATOCRIT 34.8 % (36.0-47.0); HEMOGLOBIN 11.5 g/dl (12.0-15.5); LYMPH # 0.8 10^3/uL (1.5-5.0); MEAN CORPUSCULAR VOLUME 93.8 fl (80.0-96.0); MONO # 1.1 10^3/uL (0.0-0.8); NEUTROPHILS # 4.1 10^3/uL (1.5-8.5); NEUTROPHILS % 65.6 % (36.0-66.0); PLATELET COUNT, AUTOMATED 150 10^3/uL (150-450); RED BLOOD COUNT 3.71 10^6/uL (4.00-5.40); WHITE BLOOD COUNT 6.2 10^3/uL (4.0-10.0)
[2019-11-30 13:47] LABS: BLOOD UREA NITROGEN 18 MG/DL (7-18); CALCIUM LEVEL 8.2 MG/DL (8.8-10.2); CARBON DIOXIDE LEVEL 24 MEQ/L (21-32); CHLORIDE LEVEL 108 MEQ/L (98-107); CREATININE FOR GFR 0.88 MG/DL (0.55-1.30); GLOMERULAR FILTRATION RATE > 60.0 (>45); GLUCOSE, FASTING 103 MG/DL (70-100); POTASSIUM SERUM 3.5 MEQ/L (3.5-5.1); SODIUM LEVEL 140 MEQ/L (136-145); TROPONIN I < 0.02 NG/ML (< 0.10)
[2019-11-30] MEDS ORDERED: ZOLEDRONIC ACID 4 MG OVER 15 MINUTES IV ONE ×2 (14:00)
[2019-11-30] MEDS ORDERED: NS 500 ML IV ONE (15:00)
[2019-11-30 16:28] LABS: TOTAL 25(OH) VITAMIN D 26.3 NG/ML (30.0-100.0)
[2019-11-30] MEDS: QUEtiapine FUMARATE 50 MG TAB PO SCH (20:56)
[2019-11-30] MEDS: ROSUVASTATIN 10 MG TAB (CRESTOR) PO SCH (20:56)
[2019-12-01] VITALS: BP 153/65
[2019-12-01] MEDS: PERCOCET 5MG/325MG TAB PO PRN ×3 (00:54→19:58)
[2019-12-01 04:00] VITALS: BP 109/60
[2019-12-01 04:22] LABS: HEMATOCRIT 32.9 % (36.0-47.0); HEMOGLOBIN 10.9 g/dl (12.0-15.5); MEAN CORPUSCULAR HEMOGLOBIN 30.9 pg (27.0-33.0); MEAN CORPUSCULAR HGB CONC 33.1 g/dl (32.0-36.5); MEAN CORPUSCULAR VOLUME 93.2 fl (80.0-96.0); PLATELET COUNT, AUTOMATED 166 10^3/uL (150-450); RED BLOOD COUNT 3.53 10^6/uL (4.00-5.40); WHITE BLOOD COUNT 7.6 10^3/uL (4.0-10.0)
[2019-12-01 04:37] LABS: BLOOD UREA NITROGEN 12 MG/DL (7-18); CALCIUM LEVEL 7.8 MG/DL (8.8-10.2); CARBON DIOXIDE LEVEL 25 MEQ/L (21-32); CHLORIDE LEVEL 111 MEQ/L (98-107); GLOMERULAR FILTRATION RATE > 60.0 (>45); GLUCOSE, FASTING 88 MG/DL (70-100); MAGNESIUM LEVEL 1.8 MG/DL (1.8-2.4); POTASSIUM SERUM 3.5 MEQ/L (3.5-5.1); SODIUM LEVEL 141 MEQ/L (136-145)
[2019-12-01] MEDS: SLF 3 ML SYR IV SCH ×3 (05:36→20:47)
[2019-12-01 08:00] VITALS: BP 120/67
[2019-12-01] MEDS: DOCUSATE SODIUM 100 MG CAP PO SCH ×3 (08:30→19:58)
[2019-12-01] MEDS: OMEPRAZOLE 20 MG CAP PO SCH (08:31)
[2019-12-01] MEDS: CALCIUM/VITAMIN D 500 MG TAB PO SCH (08:31)
[2019-12-01] MEDS: DULoxetine 30 MG CAP (CYMBALTA) PO SCH (08:31)
[2019-12-01] MEDS: levETIRAcetam 250MG TABLET (KEPPRA) PO SCH (08:31)
[2019-12-01] MEDS ORDERED: POTASSIUM CHLORIDE 10 MEQ SR TABLET PO ONE ×2 (09:00→10:45)
--- NOTE | 2019-12-01 10:48 | IPNPDOC ---
Text Note Date of Service The patient was seen on 12/01/19. NOTE Subjective: No any acute events overnight. 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 MRI brain: WNL, MRA brain and carotids: small 3mm Rt MCA bifurcation aneurysm, no carotid stenosis. Syncope and collapse Serial trop are negative MRI brain: WNL MRA brain and carotids: small 3mm Rt MCA bifurcation aneurysm, no carotid stenosis Echocardiogram: pending fall and seizure precautions PT/OT eval rec rehab Rhabdomyolysis Improved continue oral hydration Fall most likely vasovagal, she had extensive SWENSON done in ED all negative, except T3 compression Fx and T8 compression Fx most likely 2/2 mets. Pt will need Zoledronate Iv in the outpt settings fall precaution pain management Weakness c/w PT/OT History of lung cancer pt follows up with cancer specialist (dr Maldonado [phone]) at [place] Hypokalemia replaced VS,Fishbone, I+O VS, Fishbone, I+O Laboratory Tests 11/30/19 13:06 12/01/19 03:55 Vital Signs Date Time Temp Pulse Resp B/P (MAP) Pulse Ox O2 Delivery O2 Flow Rate FiO2 12/01/19 09:00 94 Room Air 12/01/19 08:00 97.7 82 18 120/67 (84) 2.0 I&O- Last 24 Hours up to 6 AM 12/01/19 05:59 Intake Total 2218 ml Output Total 400 ml Balance 1818 ml JULIENNE ZUNIGA DO Dec 01, 2019 10:48
[2019-12-01 12:00] VITALS: BP 117/57
[2019-12-01 16:00] VITALS: BP 100/63
[2019-12-01] MEDS: QUEtiapine FUMARATE 50 MG TAB PO SCH (19:57)
[2019-12-01] MEDS: ROSUVASTATIN 10 MG TAB (CRESTOR) PO SCH (19:57)
[2019-12-01 20:00] VITALS: BP 127/65
[2019-12-02] VITALS: BP 118/81
[2019-12-02 03:58] LABS: HEMATOCRIT 33.6 % (36.0-47.0); HEMOGLOBIN 11.3 g/dl (12.0-15.5); MEAN CORPUSCULAR HEMOGLOBIN 30.9 pg (27.0-33.0); MEAN CORPUSCULAR HGB CONC 33.6 g/dl (32.0-36.5); MEAN CORPUSCULAR VOLUME 91.8 fl (80.0-96.0); PLATELET COUNT, AUTOMATED 175 10^3/uL (150-450); RED BLOOD COUNT 3.66 10^6/uL (4.00-5.40); WHITE BLOOD COUNT 6.2 10^3/uL (4.0-10.0)
[2019-12-02 04:00] VITALS: BP 125/60
[2019-12-02 04:19] LABS: BLOOD UREA NITROGEN 10 MG/DL (7-18); CARBON DIOXIDE LEVEL 27 MEQ/L (21-32); CHLORIDE LEVEL 107 MEQ/L (98-107); CREATININE FOR GFR 0.67 MG/DL (0.55-1.30); GLOMERULAR FILTRATION RATE > 60.0 (>45); GLUCOSE, FASTING 90 MG/DL (70-100); MAGNESIUM LEVEL 1.7 MG/DL (1.8-2.4); POTASSIUM SERUM 3.7 MEQ/L (3.5-5.1); SODIUM LEVEL 139 MEQ/L (136-145)
[2019-12-02] MEDS ORDERED: MAGNESIUM OXIDE 400 MG TAB (MAG-OX) PO ONE (05:45)
[2019-12-02] MEDS: SLF 3 ML SYR IV SCH ×3 (06:00→21:32)
[2019-12-02 07:20] VITALS: BP 110/63
[2019-12-02] MEDS: DULoxetine 30 MG CAP (CYMBALTA) PO SCH (08:52)
[2019-12-02] MEDS: levETIRAcetam 250MG TABLET (KEPPRA) PO SCH (08:52)
[2019-12-02] MEDS: DOCUSATE SODIUM 100 MG CAP PO SCH ×2 (08:52→20:02)
[2019-12-02] MEDS: CALCIUM/VITAMIN D 500 MG TAB PO SCH (08:52)
[2019-12-02] MEDS: OMEPRAZOLE 20 MG CAP PO SCH (08:52)
[2019-12-02] MEDS: MAGNESIUM CHLORIDE 64 MG TABCR (SLO MAG) PO SCH (08:53)
--- NOTE | 2019-12-02 10:43 | ECHO ---
DATE OF PROCEDURE: 11/29/2019 Age: Gender: Female Height: 157 cm Weight: 60 kg REFERRING PHYSICIAN: Dr. Russ INDICATION: Syncope MEASUREMENTS: IVS 0.7 LV 3.6 LVPW 0.8 LA 2.5 Aorta 3.2 RV 3.1 IVC 1.7 Mitral E wave velocity 54, A wave 56 E prime septal 10.8 E prime lateral 11.5 FINDINGS: This study is of rather limited technical quality with difficult visualization. The patient is in sinus rhythm. Left ventricle is normal size and normal systolic function, estimated left ventricular ejection fraction (LVEF) 65 to 70%. No segmental wall motion abnormalities are appreciated based on limited views. Right ventricle also appears normal size and systolic function. Both atria appear normal. Aortic, mitral and tricuspid valves appear grossly normal. Pulmonic valve was not well seen. No pericardial effusion is noted. Inferior vena cava is of normal size. Aortic root and abdominal aorta appear normal. Aortic arch was not well seen. Doppler interrogation reveals competent aortic and mitral valves. There is trace tricuspid insufficiency, but unfortunately quality of TR was not sufficiency to estimate pulmonary artery pressure. Mitral inflow pattern and tissue Doppler imaging of mitral annulus reveals likely normal diastolic function with preserved velocities of mitral annulus. CONCLUSIONS: 1. Study is somewhat limited technical quality; the patient is in sinus rhythm. 2. Normal LV size and systolic function and probably also normal diastolic function. 3. No sign valvular disease. 4. Suggestive of normal central venous pressure. 5. Unable to estimate pulmonary artery pressure, but no findings to suggest pulmonary hypertension. COMMENTS: No obvious findings to explain syncopal event. [facility]
--- NOTE | 2019-12-02 11:14 | IPNPDOC ---
Text Note Date of Service The patient was seen on 12/02/19. NOTE Subjective: No any acute events overnight. 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 MRI brain: WNL, MRA brain and carotids: small 3mm Rt MCA bifurcation aneurysm, no carotid stenosis. Syncope and collapse Serial trop are negative MRI brain: WNL MRA brain and carotids: small 3mm Rt MCA bifurcation aneurysm, no carotid stenosis Echocardiogram showed normal LV size and systolic function and probably also normal diastolic function fall and seizure precautions PT/OT eval rec rehab Rhabdomyolysis Improved continue oral hydration Fall most likely vasovagal, she had extensive SWENSON done in ED all negative, except T3 compression Fx and T8 compression Fx most likely 2/2 mets. Pt will need Zoledronate Iv in the outpt settings fall precaution pain management Weakness c/w PT/OT History of lung cancer pt follows up with cancer specialist (dr Maldonado [phone]) at [place] Hypokalemia replaced VS,Fishbone, I+O VS, Fishbone, I+O Laboratory Tests 12/02/19 03:41 Vital Signs Date Time Temp Pulse Resp B/P (MAP) Pulse Ox O2 Delivery O2 Flow Rate FiO2 12/02/19 08:00 2.0 12/02/19 07:20 98.2 82 16 110/63 (79) 92 Room Air I&O- Last 24 Hours up to 6 AM 12/02/19 06:00 Intake Total 1020 ml Output Total 150 ml Balance 870 ml JULIENNE ZUNIGA DO Dec 02, 2019 11:14
[2019-12-02 12:15] VITALS: BP 105/62
[2019-12-02 16:00] VITALS: BP 128/72
[2019-12-02 20:00] VITALS: BP 117/61
[2019-12-02] MEDS: QUEtiapine FUMARATE 50 MG TAB PO SCH (20:38)
[2019-12-02] MEDS: ROSUVASTATIN 10 MG TAB (CRESTOR) PO SCH (20:38)
[2019-12-02] MEDS: PERCOCET 5MG/325MG TAB PO PRN (20:39)
[2019-12-03] VITALS: BP 102/58
[2019-12-03 04:00] VITALS: BP 108/73
[2019-12-03 04:43] LABS: HEMATOCRIT 33.2 % (36.0-47.0); HEMOGLOBIN 11.2 g/dl (12.0-15.5); MEAN CORPUSCULAR HEMOGLOBIN 31.2 pg (27.0-33.0); MEAN CORPUSCULAR HGB CONC 33.7 g/dl (32.0-36.5); MEAN CORPUSCULAR VOLUME 92.5 fl (80.0-96.0); PLATELET COUNT, AUTOMATED 211 10^3/uL (150-450); RED BLOOD COUNT 3.59 10^6/uL (4.00-5.40); WHITE BLOOD COUNT 6.3 10^3/uL (4.0-10.0)
[2019-12-03 04:51] LABS: BLOOD UREA NITROGEN 10 MG/DL (7-18); CALCIUM LEVEL 7.8 MG/DL (8.8-10.2); CARBON DIOXIDE LEVEL 26 MEQ/L (21-32); CHLORIDE LEVEL 108 MEQ/L (98-107); CREATININE FOR GFR 0.77 MG/DL (0.55-1.30); GLOMERULAR FILTRATION RATE > 60.0 (>45); GLUCOSE, FASTING 105 MG/DL (70-100); POTASSIUM SERUM 3.3 MEQ/L (3.5-5.1); SODIUM LEVEL 140 MEQ/L (136-145)
[2019-12-03] MEDS: SLF 3 ML SYR IV SCH ×3 (06:04→20:53)
[2019-12-03 07:52] VITALS: BP 114/56
[2019-12-03] MEDS: MAGNESIUM CHLORIDE 64 MG TABCR (SLO MAG) PO SCH (09:01)
[2019-12-03] MEDS: CALCIUM/VITAMIN D 500 MG TAB PO SCH (09:01)
[2019-12-03] MEDS: PERCOCET 5MG/325MG TAB PO PRN ×3 (09:02→20:51)
[2019-12-03] MEDS: DULoxetine 30 MG CAP (CYMBALTA) PO SCH (09:02)
[2019-12-03] MEDS: OMEPRAZOLE 20 MG CAP PO SCH (09:02)
[2019-12-03] MEDS: DOCUSATE SODIUM 100 MG CAP PO SCH ×2 (09:02→20:50)
[2019-12-03] MEDS: POTASSIUM CHLORIDE 10 MEQ SR TABLET PO SCH (09:02)
[2019-12-03] MEDS: levETIRAcetam 250MG TABLET (KEPPRA) PO SCH (09:03)
--- NOTE | 2019-12-03 10:10 | IPNPDOC ---
Text Note Date of Service The patient was seen on 12/03/19. NOTE Subjective: No any acute events overnight. Pt stated that she slept well. 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 MRI brain: WNL, MRA brain and carotids: small 3mm Rt MCA bifurcation aneurysm, no carotid stenosis. Syncope and collapse Serial trop are negative MRI brain: WNL MRA brain and carotids: small 3mm Rt MCA bifurcation aneurysm, no carotid stenosis Echocardiogram showed normal LV size and systolic function and probably also normal diastolic function fall and seizure precautions PT/OT eval rec rehab Rhabdomyolysis Improved continue oral hydration Fall most likely vasovagal, she had extensive SWENSON done in ED all negative, except T3 compression Fx and T8 compression Fx most likely 2/2 mets. Pt will need Zoledronate Iv in the outpt settings fall precaution pain management Weakness c/w PT/OT History of lung cancer pt follows up with cancer specialist (dr Maldonado [phone]) at [place] Hypokalemia replaced VS,Fishbone, I+O VS, Fishbone, I+O Laboratory Tests 12/03/19 04:16 Vital Signs Date Time Temp Pulse Resp B/P (MAP) Pulse Ox O2 Delivery O2 Flow Rate FiO2 12/03/19 09:02 18 Room Air 12/03/19 08:48 2.0 12/03/19 07:52 98.7 70 114/56 (75) 92 I&O- Last 24 Hours up to 6 AM 12/03/19 06:00 Intake Total 1380 ml Output Total 600 ml Balance 780 ml JULIENNE ZUNIGA DO Dec 03, 2019 10:10
[2019-12-03 12:00] VITALS: BP 104/51
[2019-12-03 16:00] VITALS: BP 98/59
[2019-12-03 20:00] VITALS: BP 106/52
[2019-12-03] MEDS: QUEtiapine FUMARATE 50 MG TAB PO SCH (20:50)
[2019-12-03] MEDS: ROSUVASTATIN 10 MG TAB (CRESTOR) PO SCH (20:50)
[2019-12-04] VITALS: BP 106/50
[2019-12-04 04:00] VITALS: BP 114/62
[2019-12-04 04:33] LABS: HEMATOCRIT 35.2 % (36.0-47.0); HEMOGLOBIN 11.6 g/dl (12.0-15.5); MEAN CORPUSCULAR VOLUME 94.1 fl (80.0-96.0); PLATELET COUNT, AUTOMATED 252 10^3/uL (150-450); RED BLOOD COUNT 3.74 10^6/uL (4.00-5.40); WHITE BLOOD COUNT 8.2 10^3/uL (4.0-10.0)
[2019-12-04 05:07] LABS: BLOOD UREA NITROGEN 11 MG/DL (7-18); CALCIUM LEVEL 8.1 MG/DL (8.8-10.2); CARBON DIOXIDE LEVEL 28 MEQ/L (21-32); CHLORIDE LEVEL 108 MEQ/L (98-107); CREATININE FOR GFR 0.75 MG/DL (0.55-1.30); GLOMERULAR FILTRATION RATE > 60.0 (>45); GLUCOSE, FASTING 89 MG/DL (70-100); MAGNESIUM LEVEL 2.1 MG/DL (1.8-2.4); POTASSIUM SERUM 4.2 MEQ/L (3.5-5.1); SODIUM LEVEL 137 MEQ/L (136-145)
[2019-12-04] MEDS: SLF 3 ML SYR IV SCH ×3 (06:07→20:14)
[2019-12-04 08:00] VITALS: BP 134/62
[2019-12-04 08:05] VITALS: BP 100/80
[2019-12-04] MEDS: CALCIUM/VITAMIN D 500 MG TAB PO SCH (09:55)
[2019-12-04] MEDS: levETIRAcetam 250MG TABLET (KEPPRA) PO SCH (09:55)
[2019-12-04] MEDS: MAGNESIUM CHLORIDE 64 MG TABCR (SLO MAG) PO SCH (09:55)
[2019-12-04] MEDS: DOCUSATE SODIUM 100 MG CAP PO SCH ×2 (09:55→20:13)
[2019-12-04] MEDS: OMEPRAZOLE 20 MG CAP PO SCH (09:55)
[2019-12-04] MEDS: POTASSIUM CHLORIDE 10 MEQ SR TABLET PO SCH (09:55)
[2019-12-04] MEDS: DULoxetine 30 MG CAP (CYMBALTA) PO SCH (09:55)
[2019-12-04] MEDS: PERCOCET 5MG/325MG TAB PO PRN (11:22)
[2019-12-04 16:47] VITALS: BP 124/81
[2019-12-04] MEDS: QUEtiapine FUMARATE 50 MG TAB PO SCH (20:13)
[2019-12-04] MEDS: ROSUVASTATIN 10 MG TAB (CRESTOR) PO SCH (20:13)
[2019-12-04] MEDS: ACETAMINOPHEN TAB 650MG DOSE (2X325MG) PO PRN (20:14)
[2019-12-05] MEDS: SLF 3 ML SYR IV SCH ×3 (05:20→20:16)
[2019-12-05 06:00] VITALS: BP 104/58
[2019-12-05 06:34] LABS: BLOOD UREA NITROGEN 11 MG/DL (7-18); CALCIUM LEVEL 8.2 MG/DL (8.8-10.2); CARBON DIOXIDE LEVEL 27 MEQ/L (21-32); CHLORIDE LEVEL 107 MEQ/L (98-107); CREATININE FOR GFR 0.73 MG/DL (0.55-1.30); GLOMERULAR FILTRATION RATE > 60.0 (>45); GLUCOSE, FASTING 85 MG/DL (70-100); POTASSIUM SERUM 4.4 MEQ/L (3.5-5.1); SODIUM LEVEL 137 MEQ/L (136-145)
[2019-12-05] MEDS: levETIRAcetam 250MG TABLET (KEPPRA) PO SCH (09:10)
[2019-12-05] MEDS: DULoxetine 30 MG CAP (CYMBALTA) PO SCH (09:10)
[2019-12-05] MEDS: CALCIUM/VITAMIN D 500 MG TAB PO SCH (09:11)
[2019-12-05] MEDS: POTASSIUM CHLORIDE 10 MEQ SR TABLET PO SCH (09:11)
[2019-12-05] MEDS: OMEPRAZOLE 20 MG CAP PO SCH (09:11)
[2019-12-05] MEDS: DOCUSATE SODIUM 100 MG CAP PO SCH ×2 (09:11→20:15)
[2019-12-05 10:30] VITALS: BP 98/76
[2019-12-05] MEDS ORDERED: IPRATROPIUM 0.5MG/ALBUTEROL 2.5MG INH SOL UD 3ML (DUONEB) NEB PRN (12:30)
[2019-12-05] MEDS: MAGNESIUM CHLORIDE 64 MG TABCR (SLO MAG) PO SCH (12:43)
--- NOTE | 2019-12-05 14:08 | IPNPDOC ---
Text Note Date of Service The patient was seen on 12/05/19. NOTE Subjective: This am she toppled out of her chair forward when she bent forward to fix her socks seems like got tangled in the purewick, She did hit the top of her head but seems like through the pillow which was on her lap. Does not have any tenderness or swelling on the scalp, No other trauma noted. Vitals stable. will monitor clinically. Before she fell she worked with PT and she told me she was feeling really good and wanted to go home. Her daughter will be staying with her. Episodes of Confusion noted by Nurses. With me she is unsure about her doctors and her appointments ? underlying Dementia will do a scoring. Objective: Vitals As below General: Sitting up in chair in no distress. HEENT: PERRLA, EOMI, no JVD Pulmonary: Clear to auscultation, overall diminished breath sounds. CV: S1S2 regular, no Rub/ murmur or gallop. GI: nt, nd, soft, bs present Neuro: nonfocal, cranial nerves 2-12 intact Skin Exam: nl turgor and temperature Extremity Exam: Normal pulses, no cyanosis, no swelling Labs and Radiology: reviewed. 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 MRI brain: WNL, MRA brain and carotids: small 3mm Rt MCA bifurcation aneurysm, no carotid stenosis. Syncope and collapse Due to Vasovagal/ Orthostatic syncope. Serial trop are negative MRI brain: WNL MRA brain and carotids: small 3mm Rt MCA bifurcation aneurysm, no carotid stenosis Echocardiogram showed normal LV size and systolic function and probably also normal diastolic function fall and seizure precautions PT/OT/ rehab Rhabdomyolysis resolved Recurrent Falls Due to gait instability/ vasovagal episodes. Had extensive SWENSON done in ED all negative, except T3 compression Fx and T8 compression Fx and T8 compression #s most likely 2/2 mets. continue rehab Thoracic spine fractures Pathologic appearing compression fracture is stable of T8. There is a new inferior endplate non pathologic fracture of T5 and pathologic compression fracture new of T3. Neuroendocrine tumor of lung with brain mets first diagnosed in 2012 when she had a very large mediastinal mass, which was shown to be a large cell neuroendocrine tumor. This mass measured over 10 cm. The diagnosis was made by mediastinoscopy by Dr Smith and she, then underwent chemotherapy and radiation therapy. pollo Mercado Radiation oncologist [phone] had telemedicine appointment on Nov 26 missed it. Last seen there in 2016. Cancer specialist (dr Montesinos [phone]) at [place] last seen in September 2018. No pending appointment anymore. Hypokalemia replaced COPD/Emphysema advanced Untreated will give duonebs prn Chronic Back pain continue cymbalta, percocet Depression seroquel Hyperlipidemia statin. Dispo: Will need rehab/ 24 x 7 supervision at home, ALC status now. VS,Fishbone, I+O VS, Fishbone, I+O Laboratory Tests 12/05/19 05:33 Vital Signs Date Time Temp Pulse Resp B/P (MAP) Pulse Ox O2 Delivery O2 Flow Rate FiO2 12/05/19 10:30 103 98/76 (83) 91 Room Air 12/05/19 06:00 99.3 18 12/04/19 08:00 2.0 I&O- Last 24 Hours up to 6 AM 12/05/19 06:00 Intake Total 1970 ml Output Total 700 ml Balance 1270 ml YOSVANY URIBE MD Dec 05, 2019 12:59
[2019-12-05] MEDS: ROSUVASTATIN 10 MG TAB (CRESTOR) PO SCH (20:15)
[2019-12-05] MEDS: QUEtiapine FUMARATE 50 MG TAB PO SCH (20:15)
[2019-12-06] MEDS: SLF 3 ML SYR IV SCH (05:39)
[2019-12-06 06:00] VITALS: BP 130/69
[2019-12-06] MEDS: MAGNESIUM CHLORIDE 64 MG TABCR (SLO MAG) PO SCH (09:27)
[2019-12-06] MEDS: POTASSIUM CHLORIDE 10 MEQ SR TABLET PO SCH (09:28)
[2019-12-06] MEDS: DULoxetine 30 MG CAP (CYMBALTA) PO SCH (09:28)
[2019-12-06] MEDS: levETIRAcetam 250MG TABLET (KEPPRA) PO SCH (09:28)
[2019-12-06] MEDS: DOCUSATE SODIUM 100 MG CAP PO SCH ×2 (09:28→20:02)
[2019-12-06] MEDS: OMEPRAZOLE 20 MG CAP PO SCH (09:28)
[2019-12-06] MEDS: CALCIUM/VITAMIN D 500 MG TAB PO SCH (09:28)
--- NOTE | 2019-12-06 15:10 | ECGEPIP ---
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
[2019-12-06] MEDS: ROSUVASTATIN 10 MG TAB (CRESTOR) PO SCH (20:02)
[2019-12-06] MEDS: QUEtiapine FUMARATE 50 MG TAB PO SCH (20:02)
[2019-12-07 06:00] VITALS: BP 130/71
[2019-12-07] MEDS: DULoxetine 30 MG CAP (CYMBALTA) PO SCH (09:36)
[2019-12-07] MEDS: CALCIUM/VITAMIN D 500 MG TAB PO SCH (09:36)
[2019-12-07] MEDS: POTASSIUM CHLORIDE 10 MEQ SR TABLET PO SCH (09:36)
[2019-12-07] MEDS: levETIRAcetam 250MG TABLET (KEPPRA) PO SCH (09:36)
[2019-12-07] MEDS: OMEPRAZOLE 20 MG CAP PO SCH (09:37)
[2019-12-07] MEDS: MAGNESIUM CHLORIDE 64 MG TABCR (SLO MAG) PO SCH (09:37)
[2019-12-07] MEDS: DOCUSATE SODIUM 100 MG CAP PO SCH ×2 (09:37→20:04)
[2019-12-07] MEDS: ACETAMINOPHEN TAB 650MG DOSE (2X325MG) PO PRN (11:54)
--- NOTE | 2019-12-07 12:33 | IPNPDOC ---
Text Note Date of Service The patient was seen on 12/07/19. NOTE Spoke with Radiation oncology at [facility] and we sent over all [facility] CT scans and MRIs there. They reviewed the scans and requested a MRI thoracic spine with and without contrast. Their radiologist thinks that the T8 fracture is degenerative. THey want the New MRIS to se if the T3 and T% fractures are pathologic or not then they will be able to decide if she needs some intervention or not. VS,Fishbone, I+O VS, Fishbone, I+O Vital Signs Date Time Temp Pulse Resp B/P (MAP) Pulse Ox O2 Delivery O2 Flow Rate FiO2 12/07/19 06:00 98.0 66 18 130/71 (90) 96 12/05/19 10:30 Room Air 12/04/19 08:00 2.0 I&O- Last 24 Hours up to 6 AM 12/07/19 06:00 Intake Total 930 ml Output Total 550 ml Balance 380 ml YOSVANY URIBE MD Dec 07, 2019 12:33
[2019-12-07 14:00] VITALS: BP 109/58
[2019-12-07] MEDS: ROSUVASTATIN 10 MG TAB (CRESTOR) PO SCH (20:04)
[2019-12-07] MEDS: QUEtiapine FUMARATE 50 MG TAB PO SCH (20:04)
[2019-12-08 06:00] VITALS: BP 103/58
[2019-12-08] MEDS: MAGNESIUM CHLORIDE 64 MG TABCR (SLO MAG) PO SCH (09:01)
[2019-12-08] MEDS: DULoxetine 30 MG CAP (CYMBALTA) PO SCH (09:01)
[2019-12-08] MEDS: CALCIUM/VITAMIN D 500 MG TAB PO SCH (09:01)
[2019-12-08] MEDS: DOCUSATE SODIUM 100 MG CAP PO SCH ×2 (09:02→21:21)
[2019-12-08] MEDS: levETIRAcetam 250MG TABLET (KEPPRA) PO SCH (09:02)
[2019-12-08] MEDS: OMEPRAZOLE 20 MG CAP PO SCH (09:02)
[2019-12-08] MEDS: POTASSIUM CHLORIDE 10 MEQ SR TABLET PO SCH (09:02)
[2019-12-08] MEDS: LevoFLOXacin 500 MG TABLET PO SCH (09:03)
--- NOTE | 2019-12-08 11:35 | REPVR ---
PROCEDURE INFORMATION: Exam: MR Thoracic Spine Without and With Contrast Exam date and time: 12/08/2019 10:33 AM Age: 64 years old Clinical indication: Osseous metastases, rule out pathologic fracture. TECHNIQUE: Imaging protocol: Multiplanar magnetic resonance images of the thoracic spine without and with intravenous contrast. Contrast material: PROHANCE; Contrast volume: 11 ml; Contrast route: INTRAVENOUS (IV); COMPARISON: CT Spine,thoracic w/o contrast 11/28/2019 2:33 PM FINDINGS: Vertebrae: There are pathologic compression fractures of T2, T4, and T7. There is no retropulsion. There is no significant spinal canal stenosis. Spinal cord: Normal signal. No cord compression. The bone marrow is diffusely heterogeneous consistent with diffuse osseous metastases. Pleural space: There is a small left pleural effusion. Soft tissues: Unremarkable. IMPRESSION: 1. There are pathologic compression fractures of T2, T4, and T7. There is no retropulsion. There is no significant spinal canal stenosis. 2. The bone marrow is diffusely heterogeneous consistent with diffuse osseous metastases. 3. There is a small left pleural effusion. Electronically signed by: Boris Ahn On 12/08/2019 11:34:28 AM
[2019-12-08] MEDS: QUEtiapine FUMARATE 50 MG TAB PO SCH (21:21)
[2019-12-08] MEDS: ROSUVASTATIN 10 MG TAB (CRESTOR) PO SCH (21:21)
[2019-12-09] MEDS: LevoFLOXacin 500 MG TABLET PO SCH (05:53)
[2019-12-09 06:00] VITALS: BP 102/59
[2019-12-09] MEDS: OMEPRAZOLE 20 MG CAP PO SCH (08:04)
[2019-12-09] MEDS: DOCUSATE SODIUM 100 MG CAP PO SCH ×2 (08:04→20:49)
[2019-12-09] MEDS: DULoxetine 30 MG CAP (CYMBALTA) PO SCH (08:05)
[2019-12-09] MEDS: POTASSIUM CHLORIDE 10 MEQ SR TABLET PO SCH (08:05)
[2019-12-09] MEDS: CALCIUM/VITAMIN D 500 MG TAB PO SCH (08:05)
[2019-12-09] MEDS: MAGNESIUM CHLORIDE 64 MG TABCR (SLO MAG) PO SCH (08:06)
[2019-12-09] MEDS: levETIRAcetam 250MG TABLET (KEPPRA) PO SCH (08:06)
[2019-12-09] MEDS: QUEtiapine FUMARATE 50 MG TAB PO SCH (20:49)
[2019-12-09] MEDS: ROSUVASTATIN 10 MG TAB (CRESTOR) PO SCH (20:49)
[2019-12-10] MEDS: LevoFLOXacin 500 MG TABLET PO SCH (05:26)
[2019-12-10 06:00] VITALS: BP 101/59
[2019-12-10 06:21] LABS: HEMATOCRIT 38.4 % (36.0-47.0); HEMOGLOBIN 12.7 g/dl (12.0-15.5); MEAN CORPUSCULAR HEMOGLOBIN 30.9 pg (27.0-33.0); MEAN CORPUSCULAR HGB CONC 33.1 g/dl (32.0-36.5); MEAN CORPUSCULAR VOLUME 93.4 fl (80.0-96.0); PLATELET COUNT, AUTOMATED 446 10^3/uL (150-450); RED BLOOD COUNT 4.11 10^6/uL (4.00-5.40); WHITE BLOOD COUNT 5.2 10^3/uL (4.0-10.0)
[2019-12-10 06:50] LABS: CALCIUM LEVEL 8.8 MG/DL (8.8-10.2); CREATININE FOR GFR 1.06 MG/DL (0.55-1.30); GLOMERULAR FILTRATION RATE 55.4 (>45); POTASSIUM SERUM 4.7 MEQ/L (3.5-5.1)
[2019-12-10] MEDS: CALCIUM/VITAMIN D 500 MG TAB PO SCH (08:34)
[2019-12-10] MEDS: DOCUSATE SODIUM 100 MG CAP PO SCH ×2 (08:34→20:50)
[2019-12-10] MEDS: MAGNESIUM CHLORIDE 64 MG TABCR (SLO MAG) PO SCH (08:34)
[2019-12-10] MEDS: DULoxetine 30 MG CAP (CYMBALTA) PO SCH (08:35)
[2019-12-10] MEDS: POTASSIUM CHLORIDE 10 MEQ SR TABLET PO SCH (08:35)
[2019-12-10] MEDS: levETIRAcetam 250MG TABLET (KEPPRA) PO SCH (08:35)
[2019-12-10] MEDS: OMEPRAZOLE 20 MG CAP PO SCH (08:35)
[2019-12-10] MEDS: QUEtiapine FUMARATE 50 MG TAB PO SCH (20:50)
[2019-12-10] MEDS: ROSUVASTATIN 10 MG TAB (CRESTOR) PO SCH (20:50)
[2019-12-11] MEDS: LevoFLOXacin 500 MG TABLET PO SCH (05:05)
[2019-12-11 06:00] VITALS: BP 102/56
[2019-12-11] MEDS: levETIRAcetam 250MG TABLET (KEPPRA) PO SCH (10:20)
[2019-12-11] MEDS: POTASSIUM CHLORIDE 10 MEQ SR TABLET PO SCH (10:20)
[2019-12-11] MEDS: DOCUSATE SODIUM 100 MG CAP PO SCH ×2 (10:20→20:09)
[2019-12-11] MEDS: CALCIUM/VITAMIN D 500 MG TAB PO SCH (10:20)
[2019-12-11] MEDS: DULoxetine 30 MG CAP (CYMBALTA) PO SCH (10:20)
[2019-12-11] MEDS: MAGNESIUM CHLORIDE 64 MG TABCR (SLO MAG) PO SCH (10:21)
[2019-12-11] MEDS: OMEPRAZOLE 20 MG CAP PO SCH (10:21)
[2019-12-11] MEDS: ROSUVASTATIN 10 MG TAB (CRESTOR) PO SCH (20:09)
[2019-12-11] MEDS: QUEtiapine FUMARATE 50 MG TAB PO SCH (20:09)
[2019-12-12] MEDS: LevoFLOXacin 500 MG TABLET PO SCH (05:14)
[2019-12-12 06:00] VITALS: BP 101/56
[2019-12-12] MEDS: MAGNESIUM CHLORIDE 64 MG TABCR (SLO MAG) PO SCH (09:55)
[2019-12-12] MEDS: DOCUSATE SODIUM 100 MG CAP PO SCH ×2 (09:56→20:00)
[2019-12-12] MEDS: levETIRAcetam 250MG TABLET (KEPPRA) PO SCH (09:56)
[2019-12-12] MEDS: OMEPRAZOLE 20 MG CAP PO SCH (09:56)
[2019-12-12] MEDS: POTASSIUM CHLORIDE 10 MEQ SR TABLET PO SCH (09:56)
[2019-12-12] MEDS: CALCIUM/VITAMIN D 500 MG TAB PO SCH (09:57)
[2019-12-12] MEDS: DULoxetine 30 MG CAP (CYMBALTA) PO SCH (09:57)
[2019-12-12] MEDS: QUEtiapine FUMARATE 50 MG TAB PO SCH (20:00)
[2019-12-12] MEDS: ROSUVASTATIN 10 MG TAB (CRESTOR) PO SCH (20:00)
[2019-12-13 06:00] VITALS: BP 108/52
[2019-12-13 07:49] LABS: HEMATOCRIT 37.5 % (36.0-47.0); HEMOGLOBIN 11.9 g/dl (12.0-15.5); MEAN CORPUSCULAR HEMOGLOBIN 29.9 pg (27.0-33.0); MEAN CORPUSCULAR HGB CONC 31.7 g/dl (32.0-36.5); MEAN CORPUSCULAR VOLUME 94.2 fl (80.0-96.0); PLATELET COUNT, AUTOMATED 392 10^3/uL (150-450); RED BLOOD COUNT 3.98 10^6/uL (4.00-5.40); WHITE BLOOD COUNT 4.5 10^3/uL (4.0-10.0)
[2019-12-13] MEDS ORDERED: SYMBICORT 80/4.5MCG INHALER 6GM INH SCH (08:00)
[2019-12-13 08:12] LABS: BLOOD UREA NITROGEN 17 MG/DL (7-18); CALCIUM LEVEL 8.2 MG/DL (8.8-10.2); CARBON DIOXIDE LEVEL 28 MEQ/L (21-32); CHLORIDE LEVEL 107 MEQ/L (98-107); CREATININE FOR GFR 0.88 MG/DL (0.55-1.30); GLOMERULAR FILTRATION RATE > 60.0 (>45); GLUCOSE, FASTING 83 MG/DL (70-100); POTASSIUM SERUM 4.6 MEQ/L (3.5-5.1); SODIUM LEVEL 140 MEQ/L (136-145)
[2019-12-13] MEDS: OMEPRAZOLE 20 MG CAP PO SCH (09:32)
[2019-12-13] MEDS: DOCUSATE SODIUM 100 MG CAP PO SCH (09:32)
[2019-12-13] MEDS: MAGNESIUM CHLORIDE 64 MG TABCR (SLO MAG) PO SCH (09:32)
[2019-12-13] MEDS: CALCIUM/VITAMIN D 500 MG TAB PO SCH (09:32)
[2019-12-13] MEDS: POTASSIUM CHLORIDE 10 MEQ SR TABLET PO SCH (09:33)
[2019-12-13] MEDS: DULoxetine 30 MG CAP (CYMBALTA) PO SCH (09:33)
[2019-12-13] MEDS: levETIRAcetam 250MG TABLET (KEPPRA) PO SCH (09:33)
[2019-12-13] MEDS: PERCOCET 5MG/325MG TAB PO PRN (09:41)
[2019-12-13] MEDS ORDERED: KEPP250T5 PO (12:11)
[2019-12-13] MEDS ORDERED: DOCU100C16 PO (12:11)
[2019-12-13] MEDS ORDERED: MAGN64TASA PO (12:11)
[2019-12-13] MEDS ORDERED: KLOR10TA76 PO (12:11)
[2019-12-13] MEDS ORDERED: OMEP-218 PO (12:11)
[2019-12-13] MEDS ORDERED: OXYC1TAB23 PO (12:11)
[2019-12-13] MEDS ORDERED: CALCD50TA PO (12:11)
[2019-12-13] MEDS: ACETAMINOPHEN TAB 650MG DOSE (2X325MG) PO PRN ×2 (12:31→13:06)
[2019-12-13] MEDS ORDERED: VENTAER INH (13:36)
[2019-12-13] MEDS ORDERED: SYMB80INH INH (13:46)
--- NOTE | 2019-12-13 13:56 | DS.PDOC ---
Discharge Summary General Date of Admission Nov 28, 2019 at 16:39 Date of Discharge 12/13/19 Attending Physician: PRATIMA SARMIENTO MD Discharge Summary PROCEDURES PERFORMED DURING STAY: [None]. ADMITTING DIAGNOSES: Syncope and collapse Rhabdomyolysis Fall History of Lung Cancer DISCHARGE DIAGNOSES: Syncope and collapse Rhabdomyolysis Fall Neuroendocrine tumor of lung with brain mets Thoracic spine fracture COPD Chronic back pain Depression Hyperlipidemia COMPLICATIONS/CHIEF COMPLAINT: Syncope And Collapse. 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 MRI brain: WNL, MRA brain and carotids: small 3mm Rt MCA bifurcation aneurysm, no carotid stenosis. HOSPITAL COURSE: Syncope and collapse Due to Vasovagal/ Orthostatic syncope. Serial trop are negative MRI brain: WNL MRA brain and carotids: small 3mm Rt MCA bifurcation aneurysm, no carotid stenosis Echocardiogram showed normal LV size and systolic function and probably also normal diastolic function fall and seizure precautions Rhabdomyolysis resolved with IVF Recurrent Falls Due to gait instability/ vasovagal episodes. Had extensive SWENSON done in ED all negative, except T3 compression Fx and T8 compression Fx and T8 compression #s most likely 2/2 mets. cleared by PT for DC home with services Thoracic spine fractures Pathologic appearing compression fracture is stable of T8. There is a new inferior endplate non pathologic fracture of T5 and pathologic compression fracture new of T3. MRI 12/07: Pathologic compression fractures of T2, T4, T7 seen. Bone marrow diffusely heterogenous c/w diffuse osseous metastases Neuroendocrine tumor of lung with brain mets first diagnosed in 2012 when she had a very large mediastinal mass, which was shown to be a large cell neuroendocrine tumor. This mass measured over 10 cm. The diagnosis was made by mediastinoscopy by Dr Smith and she, then underwent chem otherapy and radiation therapy. [facility] Dr Mercado Radiation oncologist [phone] had telemedicine appointment on Nov 26 missed it. Last seen there in 2016. Cancer specialist (dr Montesinos [phone]) at [place] last seen in September 2018. No pending appointment anymore. Patient to follow up in [place] after DC. Per Dr. Mercado team, imaging being reviewed, including repeat MRI from 12/08/19 and will make a decision as to whether proceed with biopsy. Pathologic compression fractures of T2, T4, T7 seen. Bone marrow diffusely heterogenous c/w diffuse osseous metastases. COPD/Emphysema advanced - untreated, received duonebs while inpatient - albuterol inh on DC - symbicort on DC Chronic Back pain continue cymbalta, percocet Depression seroquel Hyperlipidemia statin. DISCHARGE MEDICATIONS: Please see below. ALLERGIES: Please see below. PHYSICAL EXAMINATION ON DISCHARGE: VITAL SIGNS: Please see below. GENERAL: comfortable HEENT: PERRLA, EOMI NECK: supple, normal ROM CARDIOVASCULAR EXAMINATION: RRR, normal S1, S2 RESPIRATORY EXAMINATION: reduced inspiratory effort, no wheeze ABDOMINAL EXAMINATION: soft, non tender EXTREMITIES: no edema NEUROLOGICAL EXAMINATION: no focal neuro deficits. PSYCHIATRIC EXAMINATION: calm, cooperative LABORATORY DATA: Please see below. IMAGING: MR thoracic spine wwo contrast 12/07: IMPRESSION: 1. There are pathologic compression fractures of T2, T4, and T7. There is no retropulsion. There is no significant spinal canal stenosis. 2. The bone marrow is diffusely heterogeneous consistent with diffuse osseous metastases. 3. There is a small left pleural effusion. MRA: IMPRESSION: 1. 3 mm right MCA bifurcation aneurysm 2. No large vessel occlusion MR head wo contrast: IMPRESSION: 1. No acute intracranial abnormality. 2. Chronic findings as discussed above. MRA carotid arteries: IMPRESSION: No stenosis or occlusion CT abdo: IMPRESSION: Limited examination due to artifact from patient's arms. No obvious abnormality is identifiable. CT chest: IMPRESSION: 1. Limited evaluation due to artifact from patient's arms. There is no evidence of a pneumothorax or acute fracture with a 4 mm new pleural based density on the left. 2. Small pleural base lesion left lower lobe. For patients at low risk (minimal or absent history of smoking and of other known risk factors), no routine follow-up is indicated. For patients at high risk (history of smoking or of other known risk factors), consider optional CT at 12 months. (Adam et al., Fleischner Society, 2017). 3. Emphysema. 4. Dorsal spine fractures new since the CT scan of 2019 be discussed in more detail on the dorsal spine dedicated CT. CT Lumbar spine wo contrast: FINDINGS: Vertebrae: No acute fracture. Normal alignment. Discs/Spinal canal/Neural foramina: There is no evidence of a disc protrusion or disc extrusion. The foramina appear unremarkable with mild foraminal narrowing due to spurring otherwise seen at L5/S1. Central disc bulging is questioned at L4/5 with mild degenerative disc disease at L5/S1. CXR: IMPRESSION: Severe COPD and interstitial disease. PROGNOSIS: longterm prognosis guarded ACTIVITY: [As tolerated]. DIET: regular DISCHARGE PLAN: PCP and rad onc/onc follow up DISPOSITION: home with services DISCHARGE INSTRUCTIONS: 1. please follow up with your PCP within 3-5 days 2. please follow up with Dr. Mercado in [place] within 2 weeks Tel: DISCHARGE CONDITION: [Stable]. TIME SPENT ON DISCHARGE: Greater than 30 minutes. Vital Signs/I&Os Vital Signs Date Time Temp Pulse Resp B/P (MAP) Pulse Ox O2 Delivery O2 Flow Rate FiO2 12/13/19 10:11 16 12/13/19 09:41 Room Air 12/13/19 06:00 98.2 84 108/52 (70) 94 l I&O- Last 24 Hours up to 6 AM 12/13/19 06:00 Intake Total 840 ml Output Total 700 ml Balance 140 ml Laboratory Data Labs 24H Laboratory Tests 2 12/13/19 07:17: Nucleated Red Blood Cells % (auto) 0.0, Anion Gap 5L, Glomerular Filtration Rate > 60.0, Calcium Level 8.2L CBC/BMP Laboratory Tests 12/13/19 07:17 Microbiology Microbiology 12/07/19 Urine Culture - Final, Complete Escherichia Coli Discharge Medications Scheduled Budesonide/Formoterol (Symbicort 80-4.5 Mcg Inhaler) 6.9 Gm Hfa.aer.ad, 2 PUFF INH BID Calcium/Vitamin D (Calcium 500-Vit D3 200 Tablet) 1 Each Tablet, 1,000 MG PO DAILY Duloxetine Hcl (Duloxetine HCl) 60 Mg Cap, 60 MG PO DAILY, (Reported) Levetiracetam (Keppra) 250 Mg Tablet, 500 MG PO QAM Magnesium Chloride (Mag64) 64 Mg Tablet.dr, 64 MG PO DAILY Omeprazole (Omeprazole) 20 Mg Cap, 20 MG PO BID, (Reported) Omeprazole (Omeprazole) 20 Mg Capsule.dr, 20 MG PO DAILY Potassium Chloride (Klor-Con M10) 10 Meq Tab.er.prt, 40 MEQ PO DAILY Quetiapine Fumarate (Seroquel) 50 Mg Tab, 50 MG PO QHS, (Reported) Rosuvastatin Calcium (Rosuvastatin Calcium) 20 Mg Tablet, 20 MG PO QHS, (Reported) Scheduled PRN Albuterol Sulfate (Ventolin Hfa) 18 Gm Hfa.aer.ad, 2 PUFF INH Q4-6HP PRN for wheezing Docusate Sodium (Docusate Sodium) 100 Mg Capsule, 100 MG PO BID PRN for CONSTIPATION Oxycodone HCl/Acetaminophen (Oxycodone-Acetaminophen 5-325) 1 Tab Tab, 1 TAB PO TID PRN for PAIN Allergies Coded Allergies: No Known Allergies (Unverified , 10/10/17) PRATIMA SARMIENTO MD Dec 13, 2019 13:56
--- NOTE | 2019-12-20 12:01 | ECGEPIP ---
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
[2020-01-17] MEDS ORDERED: CALCTAB38 PO (14:21)
[2020-01-17] MEDS ORDERED: CRES20TA2 PO (14:21)
== END 2019-12-13 14:18 | disposition home health service (06) | DRG 543 ==
LOC: EDBD 13:31 → M ED 13:31 → M ED INP 16:39 → ENRESERV 11-29 02:50 → M PCU 11-29 03:50 → M MSPAV 12-04 16:46
PROVIDERS: ADMIT Internal Medicine; ATTEND Family Medicine
DX: M84.58XA Pathological fracture in neoplastic disease, other specified site, initial encounter for fracture (principal); C79.51 Secondary malignant neoplasm of bone; C79.31 Secondary malignant neoplasm of brain; C34.90 Malignant neoplasm of unspecified part of unspecified bronchus or lung; M62.82 Rhabdomyolysis; J44.9 Chronic obstructive pulmonary disease, unspecified; F32.9 Major depressive disorder, single episode, unspecified; E78.5 Hyperlipidemia, unspecified; R29.6 Repeated falls; Z79.899 Other long term (current) drug therapy; G47.00 Insomnia, unspecified; R55 Syncope and collapse

== ENCOUNTER → 2020-02-12 | Outpatient (CLI) | payer MEDICARE ==
[~2020-02-12] MED LIST changes: +CALCD50TA PO; +CALCTAB38 PO; +CRES20TA2 PO; +DOCU100C16 PO; +KEPP250T5 PO; +KLOR10TA76 PO; +MAGN64TASA PO; +OMEP-218 PO; +ROSU20TA5 PO; +SYMB80INH INH; +VENTAER INH
--- NOTE | 2020-02-14 08:23 | REP ---
INDICATION: RESTAGING LUNG CA. [facility] 11/28/2019, 08/31/2018, and 03/06/2018. CT abdomen and pelvis 11/28/2019, MRI of the spine 12/08/2019. Prior spine MRI showed marrow changes T2 through T5 and T7. Patient is a history of advanced stage neuroendocrine lung carcinoma diagnosed 7 years ago. TECHNIQUE: After the intravenous administration of 8.30 mCi of FDG 18 triplane whole-body PET-CT was performed from the skull base to the mid thigh. FINDINGS: There is no abnormal hypermetabolic activity seen in the neck, chest, abdomen, or pelvis. There is no abnormal hypermetabolic activity seen in the axial or imaged appendicular skeleton. There is diffuse and scattered hypermetabolic activity seen throughout the skeletal musculature. IMPRESSION: There is no abnormal hypermetabolic activity. The nodule seen in the left lung lower lobe on prior CT scans has been stable since 2018. Review of the aforementioned prior CT scans of the chest shows the presumed new left lower lobe nodule on the 11/28/2019 CT scan to have undergone a positional shift due to respiration and technique rather than a newly formed nodule. The diffuse skeletal muscle hypermetabolic activity is secondary to in adequate post injection resting. <Electronically signed by Brian Aguero > 02/14/20 0632
== END ==
LOC: M PLARAD 12:51
PROVIDERS: ATTEND Internal Medicine Hematology & Oncology
DX: Z85.118 Personal history of other malignant neoplasm of bronchus and lung (principal); R91.1 Solitary pulmonary nodule
CPT/HCPCS: 78815; A9552

== ENCOUNTER → 2020-03-11 | Outpatient (POV) | payer MEDICARE ==
[~2020-03-11] MED LIST changes: +QUET50TA3; -QUET5TAB
== END ==
LOC: M TMIRPOV 13:18
PROVIDERS: ATTEND Radiology Diagnostic Radiology
DX: Z53.9 Procedure and treatment not carried out, unspecified reason (principal)

== ENCOUNTER 2021-06-17 19:35 | Emergency (ER) | payer MEDICARE ==
[~2021-06-17] VITALS: Ht 160 cm; Wt 56.3 kg
[2021-06-17 19:35] VITALS: BP 125/70
[~2021-06-17 19:35] MED LIST changes: -CEFD1CAP8 PO; +CEFD300C41 PO; -KLOR10TA76 PO; +OMEP-173 PO; -OMEP-218 PO; +POTA-136 PO; -QUET50TA3; +QUET50TA4
[2021-06-17] MEDS ORDERED: PERCOCET 5MG/325MG TAB PO ONE (21:05)
== END 2021-06-17 23:40 | disposition home or self-care (01) ==
LOC: M ED 19:35
DX: S20.219A Contusion of unspecified front wall of thorax, initial encounter (principal); W01.0XXA Fall on same level from slipping, tripping and stumbling without subsequent striking against object, initial encounter; K21.9 Gastro-esophageal reflux disease without esophagitis; K57.92 Diverticulitis of intestine, part unspecified, without perforation or abscess without bleeding; F41.8 Other specified anxiety disorders; F32.A Depression, unspecified; Z87.891 Personal history of nicotine dependence; Z79.899 Other long term (current) drug therapy; Y92.9 Unspecified place or not applicable; Y93.9 Activity, unspecified; Y99.9 Unspecified external cause status

== ENCOUNTER → 2021-07-29 | Outpatient (REF) | payer MEDICARE | LOC: M LAB REF 16:43 | PROVIDERS: ATTEND Nurse Practitioner Adult Health | DX: C79.31 Secondary malignant neoplasm of brain (principal); C34.90 Malignant neoplasm of unspecified part of unspecified bronchus or lung ==

== ENCOUNTER 2021-08-24 21:31 | Inpatient (IN) | payer MEDICARE ==
[~2021-08-24] VITALS: Ht 157.5 cm; Wt 60.3 kg
[2021-08-24] MEDS ORDERED: MORPHINE 4 MG/ML 1ML VIAL/SYRINGE IV ONE (22:25)
[2021-08-24] MEDS ORDERED: ONDANSETRON 4MG/2ML VIAL IV ONE (22:25)
[2021-08-24 22:50] LABS: BASO % 0.8 % (0.0-1.0); EOS # 0.2 10^3/uL (0.0-0.5); EOS % 3.3 % (0.0-3.0); HEMATOCRIT 40.4 % (36.0-47.0); HEMOGLOBIN 13.5 g/dl (12.0-15.5); LYMPH # 0.8 10^3/uL (1.5-5.0); LYMPH % 16.7 % (24.0-44.0); MEAN CORPUSCULAR HGB CONC 33.4 g/dl (32.0-36.5); MEAN CORPUSCULAR VOLUME 92.9 fl (80.0-96.0); MONO # 0.5 10^3/uL (0.0-0.8); MONO % 10.5 % (2.0-8.0); NEUTROPHILS # 3.3 10^3/uL (1.5-8.5); NEUTROPHILS % 68.5 % (36.0-66.0); PLATELET COUNT, AUTOMATED 179 10^3/uL (150-450); RED BLOOD COUNT 4.35 10^6/uL (4.00-5.40); WHITE BLOOD COUNT 4.8 10^3/uL (4.0-10.0)
[2021-08-24 23:37] LABS: CALCIUM LEVEL 8.7 MG/DL (8.8-10.2); CREATININE FOR GFR 1.01 MG/DL (0.55-1.30); FREE T4 0.82 NG/DL (0.76-1.46); GLOMERULAR FILTRATION RATE 58.2 (>45); POTASSIUM SERUM 4.4 MEQ/L (3.5-5.1); THYROID STIMULATING HORMONE 2.98 uIU/ML (0.358-3.740)
[2021-08-25] MEDS ORDERED: MORPHINE 4 MG/ML 1ML VIAL/SYRINGE IV ONE
[2021-08-25 00:41] LABS: RSV AMPLIFICATION NEGATIVE (NEGATIVE)
[2021-08-25] MEDS ORDERED: KEPP1TAB PO (01:28)
[2021-08-25] MEDS ORDERED: OMEP-173 PO (01:28)
[2021-08-25] MEDS ORDERED: ROSU20TA5 PO (01:28)
[2021-08-25] MEDS ORDERED: HOME MED LIST COMPLETE! XX SCH (03:10)
[2021-08-25] MEDS: ROSUVASTATIN 10 MG TAB (CRESTOR) PO SCH (09:10)
[2021-08-25] MEDS: DULoxetine 30MG CAPSULE (CYMBALTA) PO SCH (09:11)
[2021-08-25] MEDS: OMEPRAZOLE 20MG CAP PO SCH (09:11)
[2021-08-25] MEDS: levETIRAcetam 250MG TABLET (KEPPRA) PO SCH ×2 (09:11→20:54)
[2021-08-25 09:14] LABS: HEMATOCRIT 40.3 % (36.0-47.0); HEMOGLOBIN 13.1 g/dl (12.0-15.5); MEAN CORPUSCULAR HGB CONC 32.5 g/dl (32.0-36.5); MEAN CORPUSCULAR VOLUME 95.5 fl (80.0-96.0); PLATELET COUNT, AUTOMATED 174 10^3/uL (150-450); RED BLOOD COUNT 4.22 10^6/uL (4.00-5.40); WHITE BLOOD COUNT 8.8 10^3/uL (4.0-10.0)
[2021-08-25 09:34] LABS: ALBUMIN 3.7 GM/DL (3.2-5.2); ALT/SGPT 11 U/L (12-78); BILIRUBIN,TOTAL 0.4 MG/DL (0.2-1.0); BLOOD UREA NITROGEN 19 MG/DL (7-18); CALCIUM LEVEL 9.3 MG/DL (8.8-10.2); CARBON DIOXIDE LEVEL 23 MEQ/L (21-32); CHLORIDE LEVEL 111 MEQ/L (98-107); CREATININE FOR GFR 0.97 MG/DL (0.55-1.30); GLOMERULAR FILTRATION RATE > 60.0 (>45); GLUCOSE, FASTING 92 MG/DL (70-100); POTASSIUM SERUM 4.3 MEQ/L (3.5-5.1); SODIUM LEVEL 141 MEQ/L (136-145); TOTAL PROTEIN 7.3 GM/DL (6.4-8.2)
[2021-08-25] MEDS ORDERED: PROHANCE 279.3MG/ML 5ML VIAL As Ordered ONE (12:08)
[2021-08-25 15:37] VITALS: BP 102/66
[2021-08-25 18:00] VITALS: BP 102/68
[2021-08-25] MEDS ORDERED: PERCOCET 5MG/325MG TAB PO PRN (20:30)
[2021-08-25] MEDS: QUEtiapine FUMARATE 50MG TAB PO SCH (20:54)
[2021-08-25] MEDS: PERCOCET 5MG/325MG TAB PO PRN (20:55)
[2021-08-25 22:00] VITALS: BP 98/68
[2021-08-25 23:45] VITALS: BP 119/77; O2SAT 94
[2021-08-26] VITALS (8 sets, daily range): BP systolic 93–127; BP diastolic 60–86
[2021-08-26] MEDS: PERCOCET 5MG/325MG TAB PO PRN ×2 (05:53→20:14)
[2021-08-26 07:04] LABS: HEMATOCRIT 36.4 % (36.0-47.0); HEMOGLOBIN 11.9 g/dl (12.0-15.5); MEAN CORPUSCULAR HEMOGLOBIN 30.7 pg (27.0-33.0); MEAN CORPUSCULAR HGB CONC 32.7 g/dl (32.0-36.5); MEAN CORPUSCULAR VOLUME 94.1 fl (80.0-96.0); PLATELET COUNT, AUTOMATED 153 10^3/uL (150-450); RED BLOOD COUNT 3.87 10^6/uL (4.00-5.40); WHITE BLOOD COUNT 7.3 10^3/uL (4.0-10.0)
[2021-08-26 07:30] LABS: ALBUMIN 3.4 GM/DL (3.2-5.2); ALT/SGPT 10 U/L (12-78); BILIRUBIN,TOTAL 0.6 MG/DL (0.2-1.0); BLOOD UREA NITROGEN 18 MG/DL (7-18); CALCIUM LEVEL 8.4 MG/DL (8.8-10.2); CARBON DIOXIDE LEVEL 26 MEQ/L (21-32); CHLORIDE LEVEL 106 MEQ/L (98-107); CREATININE FOR GFR 0.76 MG/DL (0.55-1.30); GLOMERULAR FILTRATION RATE > 60.0 (>45); GLUCOSE, FASTING 97 MG/DL (70-100); POTASSIUM SERUM 4.1 MEQ/L (3.5-5.1); SODIUM LEVEL 137 MEQ/L (136-145); TOTAL PROTEIN 6.3 GM/DL (6.4-8.2)
[2021-08-26] MEDS: ROSUVASTATIN 10 MG TAB (CRESTOR) PO SCH (09:36)
[2021-08-26] MEDS: DULoxetine 30MG CAPSULE (CYMBALTA) PO SCH (09:36)
[2021-08-26] MEDS: ASPIRIN 81MG ENTERIC TABLET PO SCH (09:36)
[2021-08-26] MEDS: OMEPRAZOLE 20MG CAP PO SCH (09:36)
[2021-08-26] MEDS: levETIRAcetam 250MG TABLET (KEPPRA) PO SCH ×2 (09:36→20:11)
[2021-08-26 09:52] LABS: NT-PRO BNP 85 PG/ML (<125)
[2021-08-26] MEDS: QUEtiapine FUMARATE 50MG TAB PO SCH (20:11)
[2021-08-26] MEDS ORDERED: NS 1,000 ML IV SCH (23:10)
[2021-08-27 02:00] VITALS: BP 110/62
[2021-08-27 06:00] VITALS: BP 127/82
[2021-08-27 06:41] LABS: HEMATOCRIT 36.1 % (36.0-47.0); HEMOGLOBIN 11.7 g/dl (12.0-15.5); MEAN CORPUSCULAR HEMOGLOBIN 30.7 pg (27.0-33.0); MEAN CORPUSCULAR HGB CONC 32.4 g/dl (32.0-36.5); MEAN CORPUSCULAR VOLUME 94.8 fl (80.0-96.0); PLATELET COUNT, AUTOMATED 136 10^3/uL (150-450); RED BLOOD COUNT 3.81 10^6/uL (4.00-5.40); WHITE BLOOD COUNT 6.5 10^3/uL (4.0-10.0)
[2021-08-27 06:45] VITALS: BP_SYST 116; BP_SYST 126; BP_SYST 127; BP_DIAS 77; BP_DIAS 81
[2021-08-27 07:07] LABS: ALBUMIN 3.3 GM/DL (3.2-5.2); ALT/SGPT 9 U/L (12-78); BILIRUBIN,TOTAL 0.4 MG/DL (0.2-1.0); BLOOD UREA NITROGEN 19 MG/DL (7-18); CARBON DIOXIDE LEVEL 27 MEQ/L (21-32); CHLORIDE LEVEL 107 MEQ/L (98-107); CREATININE FOR GFR 0.97 MG/DL (0.55-1.30); GLOMERULAR FILTRATION RATE > 60.0 (>45); GLUCOSE, FASTING 113 MG/DL (70-100); POTASSIUM SERUM 3.9 MEQ/L (3.5-5.1); SODIUM LEVEL 139 MEQ/L (136-145)
[2021-08-27] MEDS: ROSUVASTATIN 10 MG TAB (CRESTOR) PO SCH (10:14)
[2021-08-27] MEDS: levETIRAcetam 250MG TABLET (KEPPRA) PO SCH ×2 (10:15→20:07)
[2021-08-27] MEDS: ASPIRIN 81MG ENTERIC TABLET PO SCH (10:15)
[2021-08-27] MEDS: DULoxetine 30MG CAPSULE (CYMBALTA) PO SCH (10:15)
[2021-08-27] MEDS: OMEPRAZOLE 20MG CAP PO SCH (10:15)
[2021-08-27] MEDS: PERCOCET 5MG/325MG TAB PO PRN ×2 (10:16→20:08)
[2021-08-27] MEDS ORDERED: cefTRIAXone SOD 1 GM in D5W MINI-BAG PLUS 50 ML IV SCH (11:00)
[2021-08-27 14:00] VITALS: BP 126/68
[2021-08-27] MEDS: QUEtiapine FUMARATE 50MG TAB PO SCH (20:07)
[2021-08-27 22:00] VITALS: BP 121/74
[2021-08-28 06:00] VITALS: BP 120/74
[2021-08-28 06:24] LABS: MEAN CORPUSCULAR HEMOGLOBIN 28.7 pg (27.0-33.0); MEAN CORPUSCULAR HGB CONC 32.3 g/dl (32.0-36.5); MEAN CORPUSCULAR VOLUME 89.1 fl (80.0-96.0); PLATELET COUNT, AUTOMATED 168 10^3/uL (150-450); RED BLOOD COUNT 3.48 10^6/uL (4.00-5.40); WHITE BLOOD COUNT 7.5 10^3/uL (4.0-10.0)
[2021-08-28 06:53] LABS: ALBUMIN 3.5 GM/DL (3.2-5.2); BILIRUBIN,TOTAL 0.2 MG/DL (0.2-1.0); CALCIUM LEVEL 9.1 MG/DL (8.8-10.2); CREATININE FOR GFR 1.5 MG/DL (0.55-1.30); GLOMERULAR FILTRATION RATE 36.9 (>45); POTASSIUM SERUM 3.9 MEQ/L (3.5-5.1); TOTAL PROTEIN 6.3 GM/DL (6.4-8.2)
[2021-08-28] MEDS ORDERED: NS 1,000 ML IV SCH (08:45)
[2021-08-28] MEDS ORDERED: ALBUTEROL SULFATE 2.5 MG/0.5 ML INH NEB SOLN NEB PRN (08:45)
[2021-08-28] MEDS: NS 0.45% 1,000 ML IV SCH ×2 (08:59→19:14)
[2021-08-28] MEDS: levETIRAcetam 250MG TABLET (KEPPRA) PO SCH ×2 (09:00→22:04)
[2021-08-28] MEDS: ASPIRIN 81MG ENTERIC TABLET PO SCH (09:00)
[2021-08-28] MEDS: ROSUVASTATIN 10 MG TAB (CRESTOR) PO SCH (09:01)
[2021-08-28] MEDS: DULoxetine 30MG CAPSULE (CYMBALTA) PO SCH (09:01)
[2021-08-28] MEDS: OMEPRAZOLE 20MG CAP PO SCH (09:02)
[2021-08-28] MEDS: LevoFLOXacin 750 MG TABLET PO SCH (12:19)
[2021-08-28 14:00] VITALS: BP 118/76
[2021-08-28 20:00] VITALS: BP 117/74
[2021-08-28] MEDS: QUEtiapine FUMARATE 50MG TAB PO SCH (22:03)
[2021-08-28] MEDS: PERCOCET 5MG/325MG TAB PO PRN (22:05)
[2021-08-29] MEDS: NS 0.45% 1,000 ML IV SCH (05:31)
[2021-08-29 06:00] VITALS: BP 112/72
[2021-08-29] MEDS ORDERED: LevoFLOXacin 500 MG TABLET PO SCH (06:00)
[2021-08-29 07:06] LABS: HEMOGLOBIN 10.4 g/dl (12.0-15.5); MEAN CORPUSCULAR HEMOGLOBIN 31.5 pg (27.0-33.0); MEAN CORPUSCULAR HGB CONC 33.5 g/dl (32.0-36.5); MEAN CORPUSCULAR VOLUME 93.9 fl (80.0-96.0); PLATELET COUNT, AUTOMATED 140 10^3/uL (150-450); WHITE BLOOD COUNT 4.5 10^3/uL (4.0-10.0)
[2021-08-29 07:23] LABS: ALBUMIN 2.4 GM/DL (3.2-5.2); ALT/SGPT 12 U/L (12-78); BILIRUBIN,TOTAL 0.4 MG/DL (0.2-1.0); BLOOD UREA NITROGEN 9 MG/DL (7-18); CALCIUM LEVEL 8.9 MG/DL (8.8-10.2); CARBON DIOXIDE LEVEL 26 MEQ/L (21-32); CHLORIDE LEVEL 111 MEQ/L (98-107); GLOMERULAR FILTRATION RATE > 60.0 (>45); GLUCOSE, FASTING 94 MG/DL (70-100); POTASSIUM SERUM 4.5 MEQ/L (3.5-5.1); SODIUM LEVEL 140 MEQ/L (136-145); TOTAL PROTEIN 5.7 GM/DL (6.4-8.2)
[2021-08-29] MEDS: ASPIRIN 81MG ENTERIC TABLET PO SCH (10:29)
[2021-08-29] MEDS: ROSUVASTATIN 10 MG TAB (CRESTOR) PO SCH (10:29)
[2021-08-29] MEDS: levETIRAcetam 250MG TABLET (KEPPRA) PO SCH ×2 (10:29→20:36)
[2021-08-29] MEDS: DULoxetine 30MG CAPSULE (CYMBALTA) PO SCH (10:29)
[2021-08-29] MEDS: OMEPRAZOLE 20MG CAP PO SCH (10:29)
[2021-08-29 14:00] VITALS: BP 114/71
[2021-08-29] MEDS: PERCOCET 5MG/325MG TAB PO PRN ×2 (14:38→23:15)
[2021-08-29] MEDS: QUEtiapine FUMARATE 50MG TAB PO SCH (20:36)
[2021-08-29 22:00] VITALS: BP 117/72
[2021-08-30 01:23] LABS: ABG BASE EXCESS 2.2 (-2.0-2.0); ABG HCO3 26.9 MEQ/L (22.0-26.0); ABG O2 SATURATION 95.1 % (95.0-99.0); ABG PARTIAL PRESSURE CO2 42.3 mmHg (35.0-45.0); ABG PARTIAL PRESSURE O2 75.9 mmHg (75.0-100.0); ABG STANDARD HCO3 26.4 MEQ/L (22.0-26.0); ABG TOTAL CO2 28.2 MEQ/L (23.0-31.0); ABG pH (ARTERIAL) 7.421 UNITS (7.350-7.450)
[2021-08-30 01:39] VITALS: O2SAT 99
[2021-08-30] MEDS: LevoFLOXacin 750 MG TABLET PO SCH (05:32)
[2021-08-30] MEDS ORDERED: SODIUM CHLORIDE 0.45% 1000 ML IV ONE (05:50)
[2021-08-30 05:55] VITALS: BP 98/60
[2021-08-30 06:17] LABS: HEMATOCRIT 31.2 % (36.0-47.0); HEMOGLOBIN 10.5 g/dl (12.0-15.5); MEAN CORPUSCULAR HEMOGLOBIN 31.5 pg (27.0-33.0); MEAN CORPUSCULAR HGB CONC 33.7 g/dl (32.0-36.5); MEAN CORPUSCULAR VOLUME 93.7 fl (80.0-96.0); PLATELET COUNT, AUTOMATED 160 10^3/uL (150-450); RED BLOOD COUNT 3.33 10^6/uL (4.00-5.40); WHITE BLOOD COUNT 5.1 10^3/uL (4.0-10.0)
[2021-08-30 06:28] VITALS: BP 98/64
[2021-08-30 06:40] LABS: ALBUMIN 2.8 GM/DL (3.2-5.2); ALT/SGPT 14 U/L (12-78); BILIRUBIN,TOTAL 0.5 MG/DL (0.2-1.0); BLOOD UREA NITROGEN 11 MG/DL (7-18); CALCIUM LEVEL 8.4 MG/DL (8.8-10.2); CARBON DIOXIDE LEVEL 29 MEQ/L (21-32); CHLORIDE LEVEL 106 MEQ/L (98-107); CREATININE FOR GFR 0.73 MG/DL (0.55-1.30); GLOMERULAR FILTRATION RATE > 60.0 (>45); GLUCOSE, FASTING 99 MG/DL (70-100); POTASSIUM SERUM 3.7 MEQ/L (3.5-5.1); SODIUM LEVEL 140 MEQ/L (136-145); TOTAL PROTEIN 5.6 GM/DL (6.4-8.2)
[2021-08-30 09:00] VITALS: O2SAT 96
[2021-08-30] MEDS: DULoxetine 30MG CAPSULE (CYMBALTA) PO SCH (09:47)
[2021-08-30] MEDS: OMEPRAZOLE 20MG CAP PO SCH (09:47)
[2021-08-30] MEDS: ROSUVASTATIN 10 MG TAB (CRESTOR) PO SCH (09:47)
[2021-08-30] MEDS: ASPIRIN 81MG ENTERIC TABLET PO SCH (09:47)
[2021-08-30] MEDS: levETIRAcetam 250MG TABLET (KEPPRA) PO SCH ×2 (09:47→21:39)
[2021-08-30 14:00] VITALS: BP 97/71
[2021-08-30] MEDS: PERCOCET 5MG/325MG TAB PO PRN (18:23)
[2021-08-30] MEDS: QUEtiapine FUMARATE 50MG TAB PO SCH (21:39)
[2021-08-31 06:00] VITALS: BP 99/71
[2021-08-31] MEDS: OMEPRAZOLE 20MG CAP PO SCH (08:57)
[2021-08-31] MEDS: ROSUVASTATIN 10 MG TAB (CRESTOR) PO SCH (08:57)
[2021-08-31] MEDS: DULoxetine 30MG CAPSULE (CYMBALTA) PO SCH (08:57)
[2021-08-31] MEDS: levETIRAcetam 250MG TABLET (KEPPRA) PO SCH ×2 (08:58→20:39)
[2021-08-31] MEDS: ASPIRIN 81MG ENTERIC TABLET PO SCH (08:58)
[2021-08-31] MEDS: PERCOCET 5MG/325MG TAB PO PRN ×2 (13:30→20:38)
[2021-08-31] MEDS: QUEtiapine FUMARATE 50MG TAB PO SCH (20:39)
[2021-09-01 06:00] VITALS: BP 100/72
[2021-09-01] MEDS: PERCOCET 5MG/325MG TAB PO PRN (08:20)
[2021-09-01] MEDS: ASPIRIN 81MG ENTERIC TABLET PO SCH (08:21)
[2021-09-01] MEDS: DULoxetine 30MG CAPSULE (CYMBALTA) PO SCH (08:21)
[2021-09-01] MEDS: levETIRAcetam 250MG TABLET (KEPPRA) PO SCH (08:21)
[2021-09-01] MEDS: ROSUVASTATIN 10 MG TAB (CRESTOR) PO SCH (08:21)
[2021-09-01] MEDS: OMEPRAZOLE 20MG CAP PO SCH (08:21)
[2021-09-01] MEDS ORDERED: ASPI-551 PO (10:19)
[2021-09-01] MEDS ORDERED: PERCOCET PO (10:19)
== END 2021-09-01 13:02 | DRG 563 ==
LOC: M ED 21:31 → M ED INP 08-25 00:42 → ENRESERV 08-25 14:46 → M MSPAV 08-25 15:36
PROVIDERS: ADMIT Family Medicine; ATTEND General Practice
PROC: 2W3BXYZ Immobilization of Left Upper Arm using Other Device (ICD-10-PCS; 2021-08-24)
PROC: B246ZZZ Ultrasonography of Right and Left Heart (ICD-10-PCS; principal; 2021-08-27)
DX: S42.355A Nondisplaced comminuted fracture of shaft of humerus, left arm, initial encounter for closed fracture (principal); N39.0 Urinary tract infection, site not specified; N17.9 Acute kidney failure, unspecified; Z85.118 Personal history of other malignant neoplasm of bronchus and lung; B96.4 Proteus (mirabilis) (morganii) as the cause of diseases classified elsewhere; Z66 Do not resuscitate; R29.6 Repeated falls; J44.9 Chronic obstructive pulmonary disease, unspecified; E78.5 Hyperlipidemia, unspecified; G47.00 Insomnia, unspecified; Z92.3 Personal history of irradiation; Z92.21 Personal history of antineoplastic chemotherapy; Z90.49 Acquired absence of other specified parts of digestive tract; Z90.79 Acquired absence of other genital organ(s); W01.0XXA Fall on same level from slipping, tripping and stumbling without subsequent striking against object, initial encounter; Y92.009 Unspecified place in unspecified non-institutional (private) residence as the place of occurrence of the external cause; Z20.822 Contact with and (suspected) exposure to COVID-19; F32.A Depression, unspecified; Z79.899 Other long term (current) drug therapy; K21.9 Gastro-esophageal reflux disease without esophagitis; R06.02 Shortness of breath; T40.605A Adverse effect of unspecified narcotics, initial encounter; M85.88 Other specified disorders of bone density and structure, other site; F03.90 Unspecified dementia, unspecified severity, without behavioral disturbance, psychotic disturbance, mood disturbance, and anxiety

== ENCOUNTER → 2021-09-15 | Outpatient (CLI) | payer MEDICARE ==
[~2021-09-15] MED LIST changes: +ASPI-551 PO
== END ==
LOC: M SOG 13:28
PROVIDERS: ATTEND Orthopaedic Surgery
DX: S42.302D Unspecified fracture of shaft of humerus, left arm, subsequent encounter for fracture with routine healing (principal)

== ENCOUNTER 2021-11-23 15:27 | Emergency (ER) | payer MEDICARE, MEDICAID ==
[~2021-11-23] VITALS: Ht 160 cm; Wt 60.9 kg
[2021-11-23] MEDS ORDERED: LEVE250T5 (15:48)
[2021-11-23] MEDS ORDERED: OXYC1TAB23 (15:48)
[2021-11-23] MEDS ORDERED: ACETAMINOPHEN TAB 650MG DOSE (2X325MG) PO ONE (17:00)
[2021-11-23 17:21] VITALS: BP 119/80
== END 2021-11-23 17:19 | disposition home or self-care (01) ==
LOC: M ED 15:27
DX: M25.551 Pain in right hip (principal); W06.XXXA Fall from bed, initial encounter; Y92.009 Unspecified place in unspecified non-institutional (private) residence as the place of occurrence of the external cause; Y93.9 Activity, unspecified; Y99.9 Unspecified external cause status